=== PATIENT | male | born 1950 | race Caucasian/White ===

== ENCOUNTER 2024-08-08 20:20 | Inpatient (IN) | payer MEDICARE, SELFPAY ==
[2024-08-08 20:29] VITALS: PULSE 145; RESP 18; O2SAT 90; BMI 39.9
--- NOTE | 2024-08-08 20:31 | ECG_ITS ---
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 Measurements Intervals [place] Rate: 126 P: 0 IL: 0 QRS: -13 QRSD: 149 T: 1 QT: 285 QTc: 413 Interpretive Statements ATRIAL FIBRILLATION WITH RAPID VENTRICULAR RESPONSE RIGHT BUNDLE BRANCH BLOCK [120+ ms QRS DURATION, UPRIGHT V1, 40+ ms S IN I/aVL/V4/V5/V6] VOLTAGE CRITERIA FOR LVH [MEETS CRITERIA IN ONE OF: R(aVL), S(V1), R(V5), R(V5/V6)+S(V1)] ST DEPRESSION, CONSIDER SUBENDOCARDIAL INJURY [0.1+ mV ST DEPRESSION] No previous ECG available for comparison Electronically Signed On 08-15-2024 10:20:37 CDT by Rafa Leon M.D. [email or web address]
--- NOTE | 2024-08-08 20:35 | XRR_ITS ---
PROCEDURE INFORMATION: Exam: XR Chest Exam date and time: 08/08/2024 8:38 PM Age: 74 years old Clinical indication: Shortness of breath TECHNIQUE: Imaging protocol: Radiologic exam of the chest. Views: 1 view. COMPARISON: No relevant prior studies available. FINDINGS: Lungs: Patchy airspace disease present in the lung bases. Mild pulmonary vascular congestion. Pleural spaces: Small right pleural effusion. Heart/Mediastinum: Heart is enlarged. Bones/joints: Degenerative changes involve the spine and shoulders. XR/XR chest 1V portable [id number] IMPRESSION: Cardiomegaly associated with pulmonary vascular congestion. Patchy airspace disease present in the lung bases which may reflect pulmonary edema or pneumonia. Small right pleural effusion
--- NOTE | 2024-08-08 20:38 | ED_ITS ---
HPI - Chest Pain General: Chief Complaint: Chest Pain Stated Complaint: Chest Pains Time Seen by Provider: 08/08/24 20:29 History of Present Illness: Patient is a 74-year-old male seen for chest pain and shortness of breath which have been getting worse over the last 2 days associated with leg swelling. He states that he has not taken any of his medications for the last 2 weeks because he feels better when he does not take them. He has a history of heart disease with several stents placed and is supposed to be taking a loop diuretic as well as blood thinners and blood pressure medication, again none of which she has taken for the last several weeks. He describes gradual onset of shortness of breath and orthopnea over the last 3 days and then chest pain which he describes as pressure-like, worse with exertion, currently 5 out of 10, substernal with no radiation. He is in town visiting his son from [place]. Related Data Allergies Allergy/AdvReac Type Severity Reaction Status Date / Time No Known Allergies Allergy Verified 08/08/24 20:31 Physical Exam Const: COMMON NORMALS: no acute distress, patient oriented x3 and alert HENMT: COMMON NORMALS: normocephalic and atraumatic HEAD & SCALP: normocephalic and atraumatic Eye: COMMON NORMALS: Equal, round and reactive pupils present, EOMs intact bilaterally and no scleral icterus PUPIL: Yes Equal, round and reactive pupils present Resp: OTHER: Minimally increased work of breathing at rest, mild tachypnea, crackles at both lung bases. Orthopneic. Cardio: OTHER: Irregularly irregular, tachycardic heart. No murmur. Strong pulses in all extremities. 1-2+ pitting edema of the lower legs to the midshin level which she states is significantly worse than usual. GI: COMMON NORMALS: Normal to inspection, nondistended, normoactive bowel sounds present, Soft to palpation and non-tender PALPATION: Yes Soft to palpation Neuro: COMMON NORMALS: patient oriented x3 SENSORIUM/ORIENTATION: Yes alert Skin: COMMON NORMALS: no rashes or lesions noted GENERAL SKIN EXAM: no rashes or lesions noted Course Vital Signs: Vital signs: Vital Signs Pulse Rate 145 H 08/08/24 20:29 Respiratory Rate 18 08/08/24 20:29 Pulse Oximetry 90 08/08/24 20:29 Oxygen Delivery Me thod Room Air 08/08/24 20:29 MDM - Chest Pain EKG Data EKG 1: Interpretation: Time?2019?atrial fibrillation with RVR, rate of 126, right bundle branch block pattern and significant aVR ST segment elevation with lateral depression likely rate related. QTc = 359. No prior studies on file for comparison. Discharge Plan Discharge Condition: Stable Print Language: Latvian Coding Level of Care Code ED Experience Planning Strategist for Primo Guerrero
[2024-08-08] MEDS: dilTIAZem 5 mg/mL SDV 5 mL 10 MG IVP ×2 (20:42→21:44)
[2024-08-08 20:44] LABS: Basophils % 0.3 %; Eosinophils # 0.2 10^3/uL (0.0-0.8); Eosinophils % 1.6 %; Hematocrit 47.9 % (37-53); Lymphocytes # 1.7 10^3/uL (0.8-4.8); Lymphocytes % 18.2 %; Mean Corpuscular HGB Conc 31.3 g/dL (30-55); Mean Corpuscular Hemoglobin 26.6 pg (27-33); Mean Corpuscular Volume 84.9 fl (82-101); Mean Platelet Volume 9.4 fL (7.4-10.4); Monocytes # 0.7 10^3/uL (0.2-0.9); Monocytes % 7.7 %; Neutrophils # 6.67 10^3/uL (1.8-7.7); Nucleated Red Blood Cells % 0 %; Platelet Count 211 10^3/cmm (157-399); Red Blood Count 5.64 10^6/uL (3.85-5.65); Red Cell Distribution Width 17.3 % (12.1-15.1); White Blood Count 9.27 10^3/uL (3.29-11.43)
[2024-08-08] MEDS: nitroglycerin 1 gm/inch oint Pkt 1 INCH TOPICAL (20:44)
[2024-08-08] MEDS: FUROsemide 10 mg/mL SDV 10mL 60 MG IVP (20:46)
[2024-08-08 20:47] VITALS: BP 146/103; PULSE 128; RESP 31; O2SAT 92
[2024-08-08 20:51] LABS: INR 0.98 (0.8-1.2)
[2024-08-08 20:52] LABS: Partial Thromboplastin Time 28.1 SECONDS (23.9-36.7)
[2024-08-08 21:00] VITALS: BP 183/125; PULSE 107; O2SAT 92
[2024-08-08 21:20] LABS: Troponin(5th) Baseline 34 ng/L (0-15)
[2024-08-08 21:27] LABS: Alanine Aminotransferase 11 U/L (0-41); Albumin Level 4.2 g/dL (3.5-5.2); Alkaline Phosphatase 73 U/L (40-130); Anion Gap 15.4 (5-19); Aspartate Amino Transferase 15 U/L (0-40); Blood Urea Nitrogen 16 mg/dL (8-23); Calcium 9.4 mg/dL (8.5-10.5); Carbon Dioxide 30 mmol/L (22-29); Chloride 102 mmol/L (98-107); Creatinine Clr Calc Pharmacy 98.4573; Glucose 123 mg/dL (65-115); NT Pro B Type Natriuretic Pept 1904 pg/mL (0-125); Osmolality Calculated 301 mOsm/kg (285-295); Potassium 3.4 mmol/L (3.5-5.1); Sodium 144 mmol/L (136-145); Total Bilirubin 0.2 mg/dL (0.15-1.2); Total Protein 7.2 g/dL (6.6-8.7)
[2024-08-08 21:45] VITALS: BP 171/131; PULSE 116; RESP 20; O2SAT 94
[2024-08-08 22:52] LABS: Troponin 5 2HR 60.17 ng/L (0-15)
[2024-08-08 22:58] LABS: Troponin 5 2HR Delta 26.17 ABS# (0-10)
[2024-08-08 23:14] VITALS: BP 165/108; PULSE 122; RESP 16; O2SAT 93
[2024-08-08 23:30] VITALS: BP 151/107; PULSE 92; RESP 20; O2SAT 97
[2024-08-09] VITALS (21 sets, daily range): BP systolic 145–200; BP diastolic 92–132; PULSE 0–99; RESP 17–27; TEMP 36.9–37.3; O2SAT 91–100
[2024-08-09] MEDS: dilTIAZem 100 MG in sodium chloride 0.9% (add-van) 100 ML IV (00:59)
--- NOTE | 2024-08-09 01:24 | ECG_ITS ---
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 Measurements Intervals [place] Rate: 88 P: 0 MD: 0 QRS: -19 QRSD: 176 T: 0 QT: 420 QTc: 509 Interpretive Statements ATRIAL FIBRILLATION RIGHT BUNDLE BRANCH BLOCK [120+ ms QRS DURATION, UPRIGHT V1, 40+ ms S IN I/aVL/V4/V5/V6] POSSIBLE LEFT VENTRICULAR HYPERTROPHY [VOLTAGE CRITERIA PLUS LAE OR QRS WIDENING] Compared to ECG 08/08/2024 20:20:27 ST (T wave) deviation no longer present Electronically Signed On 08-15-2024 10:20:11 CDT by Rafa Leon M.D. [email or web address] [email or web address]
--- NOTE | 2024-08-09 01:41 | P.HP_ITS ---
Providers/Chief Complaint 2 Admitting Physician: Fernando Barker MD Primary Care Provider: Ariadna Cerna Audrey Chief Complaint: Chest Pains History of Present Illness Ghanshyam Conway is a 74 year old male male who sees Hayes Glasgow MD from [facility]. The patient states that he had been fatigued and felt poorly and wanted to cut back on some of his meds but daughter did not want to discuss this much so he stopped all his meds 2 or 3 weeks ago. He drove drove here to supervise his son who is 55 building a house in the [facility] about 45 minutes from this hospital. States he does not know the name of that town. Patient did not bring his BiPAP which he states one of the settings is 13 because his son is planning to live off [address] and does not have any electricity currently. Patient states his medications are in his car 7 or 9 medications but he does not know the names of them his car is not here as he came by ambulance. He states his son could bring them tomorrow Review of Systems 2 Narrative: General positive for weight gain positive for dyspnea on exertion orthopnea leg swelling all worse since stopping his meds. Cardiovascular positive for chest pain severe but none now Respiratory positive for dyspnea on exertion and orthopnea GI no nausea vomiting diarrhea constipation Neuro no history of seizures or stroke Medications/Allergies Allergies Allergy/AdvReac Type Severity Reaction Status Date / Time No Known Allergies Allergy Verified 08/08/24 20:31 PFSH Acute 2 PFSH: Medical History (Updated 08/09/24 @ 01:50 by Fernando Barker MD) Brain tumor Sleep apnea COPD (chronic obstructive pulmonary disease) Coronary artery disease Congestive heart failure Atrial fibrillation Surgical History (Updated 08/09/24 @ 01:49 by Fernando Barker MD) H/O craniotomy History of herniorrhaphy Hx of total knee arthroplasty Social History (Updated 08/09/24 @ 01:49 by Fernando Barker MD) Smoking and tobacco/nicotine status: current every day tobacco/nicotine user cigarettes Alcohol intake: former Additional social history: He wants full CODE STATUS Vitals/I&O/Wt Last Vital Signs Pulse 78 08/09/24 01:31 Resp 20 H 08/09/24 01:31 BP 156/96 08/09/24 01:31 Pulse Ox 97 08/09/24 01:31 O2 Del Method Nasal Cannula 08/08/24 23:14 O2 Flow Rate 2 08/08/24 23:14 Weight last 48 hrs Weight 115.666 kg Physical Exam 2 Narrative: General well-developed well-nourished obese male in no acute cardiopulmonary distress CV irregular rhythm with controlled rate Lungs crackles heard in both bases no wheezes Abdomen positive bowel sounds soft nontender Calves no tenderness cords. He does have pretibial edema 2+ to 3 bilateral and pitting Skin warm and dry Mentation alert and oriented x 3 but he is poor historian Data 08/08/24 20:28 08/08/24 20:28 A&P Assessment and plan (1) Congestive heart failure: Continue with diuresis. Need to obtain old records from [place]. Monitor potassium magnesium and phosphorus with diuresis. Resume BiPAP (2) Coronary artery disease: Troponin elevated but likely due to demand ischemia. Additional troponin pending (3) Atrial fibrillation: Continue with rate control with diltiazem drip. Will add beta-trey (4) COPD (chronic obstructive pulmonary disease): Stable (5) Sleep apnea: Stable but will treat with BiPAP (6) Noncompliance: Patient counseled that there may be some medications that he can forego under the direction physician but he cannot stop all his medications and BiPAP as he rapidly decompensated and will without taking at least most of his medications PDMP PDMP Reviewed: Not Reviewed Attestations 2 Medical Necessity Statement*: Patient's hospitalization will cross 2 midnights for diuresis and adjustment of his medications Coding Level of Care Code 59212 Diagnoses Congestive heart failure I50.9 Coronary artery disease I25.10 Atrial fibrillation I48.91 COPD (chronic obstructive pulmonary disease) J44.9 Sleep apnea G47.30 Noncompliance Z91.199 Time Spent (min) 70
[2024-08-09] MEDS: magnesium sulfate premix 2 GM/50 ML PIGGYBACK IV (02:32)
[2024-08-09] MEDS: FUROsemide 10 mg/mL SDV 4mL 40 MG IVP ×2 (02:33→14:21)
[2024-08-09] MEDS: potassium chloride ER 20 mEq Tablet 40 MEQ PO (02:33)
[2024-08-09] MEDS: apixaban 5 mg Tablet PO (02:33)
[2024-08-09] MEDS: metoprolol succinate ER (24 HR) 50 mg Tablet PO ×3 (02:48→17:20)
[2024-08-09 03:29] LABS: Troponin 5 6HR 102.2 ng/L (0-15); Troponin 5 6HR Delta 68.2 ng/L (0-12)
[2024-08-09] MEDS: ipratropium-albuterol 3 mL Neb INHALATION ×3 (07:46→21:28)
--- NOTE | 2024-08-09 08:01 | PC.PHAR ---
Pt states he gets medications via mail order and has not taken any of them in 2 weeks. Pt uses his sample of Trelegy Ellipta daily to help him breathe.
--- NOTE | 2024-08-09 08:06 | USCV_ITS ---
Ghanshyam Conway Age: 74 Gender: M : 1950 Exam Date: 08/09/2024 19:17 Ordering Phys: Osiel Jones MD Technologist: ELHAM [place] [facility] [place]: CHF, elevated troponin BP: 172 / 108 HR: 72 Rhythm: Atrial fibrillation Technical Quality: Adequate MEASUREMENTS (Male / Female) Normal Values 2D ECHO LV Diastolic Diameter PLAX 4.2 cm 4.2 - 5.9 / 3.9 - 5.3 cm IVS Diastolic Thickness 3.4 cm 0.6 - 1.0 / 0.6 - 0.9 cm IVS Systolic Thickness 3.4 cm LVPW Diastolic Thickness 2.3 cm 0.6 - 1.0 / 0.6 - 0.9 cm LVPW Systolic Thickness 2.6 cm LVOT Diameter 1.8 cm LV Ejection Fraction 2D Teich 64.5 % LV Ejection Fraction MOD 4C 70.0 % LV Ejection Fraction MOD 2C 61.8 % LV Ejection Fraction 2C AL 68.1 % LA Diameter 5.4 cm Aorta at Sinotubular Diameter 3.3 cm IVC Diameter 1.6 cm M-MODE LA Ao Ratio MM 1.8 AV Cusp Separation MM 1.9 cm DOPPLER AV Peak Velocity 171.0 cm/s LVOT Peak Velocity 121.0 cm/s AV Area Cont Eq vti 2.8 cm squared AV Area Cont Eq pk 1.9 cm squared MV Peak Velocity 120.0 cm/s MV Area PHT 3.0 cm squared Mitral E to A Ratio 0.0 TR Peak Velocity 278.0 cm/s TR Peak Gradient 30.9 mmHg TV Peak E Velocity 54.0 cm/s PV Peak Velocity 101.0 cm/s FINDINGS Left Ventricle Left ventricle is normal in size. Severe left ventricular hypertrophy. LV systolic function is normal with EF of 65-70%. No regional wall motion abnormalities are seen Right Ventricle Normal in size and function Right Atrium Normal in size Left Atrium Severely dilated Mitral Valve Moderate to severe mitral annular calcification. Mild mitral regurgitation. Aortic Valve Aortic valve is thickened. No significant stenosis or regurgitation. Tricuspid Valve Mild tricuspid regurgitation. RVSP is 40-45mmHg. Mild pulmonary hypertension. Pulmonic Valve Not well visualized Pericardium Normal Aorta Mild ascending aorta dilation. IVC Appears to be normal CONCLUSIONS LV systolic function is normal with EF of 65-70% Severe left ventricular hypertrophy Left atrial dilation Mild mitral regurgitation Mild tricuspid regurgitation Mild pulmonary hypertension Mild ascending aorta dilation. No comparison studies are available. Rafa Leon MD (Electronically Signed) Final Date: 10 August 2024 08:21 S
[2024-08-09] MEDS: potassium chloride ER 20 mEq Tablet PO ×2 (08:23→17:20)
[2024-08-09] MEDS: aspirin 325 mg Tablet PO (08:23)
[2024-08-09] MEDS: dilTIAZem 30 mg Tablet PO ×4 (10:30→20:23)
[2024-08-09 14:05] LABS: Platelet Count 202 10^3/cmm (157-399)
[2024-08-09] MEDS: heparin 5,000 unit/mL INJ 1 mL IVP (14:14)
[2024-08-09] MEDS: heparin drip 25,000 UNIT/500 ML PREMIX 32 UNIT IV (14:42)
--- NOTE | 2024-08-09 15:05 | P.PN_ITS ---
Subjective 2 Subjective: He is feeling little bit better this morning. No chest pain or pressure. Heart rate so far with improvement down into the 70s. He does report exertional chest pain. Has a history of coronary disease and has had several stents, last 1 was probably about 6 months ago. He states he has missed doses of his prasugrel, discussed with him significant importance and risk of severe adverse effects in case of discontinuation of his medications, risk of stent thrombosis and related potentially life-threatening complications. He verbalized understanding for need for continued medication, at the least prasugrel. Vitals/I&O/Wt Last Vital Signs Temp 99.1 F 08/09/24 11:51 Pulse 72 08/09/24 13:48 Resp 18 08/09/24 13:43 BP 145/100 08/09/24 12:53 Pulse Ox 94 08/09/24 13:43 O2 Del Method Nasal Cannula 08/09/24 13:43 O2 Flow Rate 1 08/09/24 13:43 FiO2 30 08/09/24 02:32 08/09/24 08/09/24 08/09/24 06:59 14:59 22:59 Intake Total 50 / 50 654.000 / 654.000 Output Total 1500 / 1500 810 / 810 Balance -1450 / -1450 -156.000 / -156.000 Weight last 48 hrs Weight 115.666 kg Weight 115.666 kg Weight 115.666 kg Physical Exam 2 Const: COMMON NORMALS: patient oriented x3 and alert GENERAL APPEARANCE: c ooperative ORIENTATION/CONSCIOUSNESS: Yes awake HENMT: COMMON NORMALS: oropharynx normal Neck/C-Spine: COMMON NORMALS: no JVD Resp: COMMON NORMALS: normal respiratory effort and clear to auscultation bilaterally AUSCULTATION: clear to auscultation bilaterally Cardio: COMMON NORMALS: no JVD, S1 normal heart sound present, S2 normal heart sound present and No murmurs present (Cardio) HEART SOUNDS: S1 normal heart sound present and S2 normal heart sound present GI: COMMON NORMALS: Normal to inspection, nondistended, normoactive bowel sounds present, Soft to palpation and non-tender PALPATION: Yes Soft to palpation Extremity: COMMON NORMALS: no joint enlargement and no pedal edema Neuro: COMMON NORMALS: patient oriented x3 and moves all extremities S ENSORIUM/ORIENTATION: Yes alert Skin: COMMON NORMALS: no rashes or lesions noted GENERAL SKIN EXAM: no rashes or lesions noted Data 08/09/24 02:35 08/08/24 20:28 A&P Assessment and plan (1) Coronary artery disease: NSTEMI with rising troponin positive delta at 2 hours and 6 hours. He had received a dose of anticoagulation with Eliquis overnight. Eliquis held. Added aspirin 325 mg. He was on prasugrel previously, but does state he missed doses. Discussed with him the importance of adherence to medications particularly antiplatelets. Discussed with cardiology, appreciate cardiology consultation. Started on aspirin. Resume prasugrel. Anticoagulation has been switched to heparin drip. Monitor risk of bleeding, PTT. Continue metoprolol. Restart statin. Assess TTE. Monitor on telemetry with risk of arrhythmia. Pending record request from [place]. (2) Congestive heart failure: With initial diuresis good urine output, negative balance,, with finding of NSTEMI, appreciate cardiology consultation, consideration of further evaluation. Receiving gentle hydration. Monitor for risk of fluid overload. Reassess volume status. Received potassium replacement, monitor for risk of electrolyte deficiency. Reassess chemistry, check magnesium. resume BiPAP (3) Atrial fibrillation: Heart rate better controlled on reassessment, stop Cardizem drip, switch to oral Cardizem. Continue metoprolol. Monitor for risk of hypotension. So far has been significantly hypertensive. (4) COPD (chronic obstructive pulmonary disease): Not in exacerbation (5) Sleep apnea: BiPAP (6) Noncompliance: Reinforced importance of continue to take his medications particularly prasugrel due to risk of in-stent closure, severe and/or life-threatening DE. Plan Smoking addiction, discussed smoking cessation with him for 3 and half minutes. He has tried multiple medications in the past, including Chantix, has not been successful in quitting. Chantix gave him bad dreams. He initially is reluctant for nicotine replacement, states it has not worked for him in the past, however, subsequent agreeable to nicotine replacement with patches and as needed lozenges at least for here. PDMP PDMP Reviewed: Not Reviewed Attestations 2 Medical Necessity Statement*: Continue admission for assessment and management of NSTEMI, acute CHF in a gentleman with underlying coronary disease, additional comorbidities. and High MDM includes amount and/or complexity of data reviewed/ordered [ resulted lab(s)/test(s), ordered lab(s)/test(s) and other healthcare professional discussion] and described risk of complication, morbidity or mortality of management as documented Diagnoses Coronary artery disease I25.10 Congestive heart failure I50.9 Atrial fibrillation I48.91 COPD (chronic obstructive pulmonary disease) J44.9 Sleep apnea G47.30 Noncompliance Z91.199
--- NOTE | 2024-08-09 15:22 | P.CONIM_ITS ---
<Statement entered by Rafa Leon M.D - 08/11/24 07:23> Patient was evaluated and cared for in conjunction with an advanced practice practitioner.? I personally examined the patient and reviewed the chart and all pertinent data including imaging, telemetry, and laboratory results.? I discussed the patient in detail with the advanced practice practitioner.? Please see? their note for complete consult note, testing results and agreed upon plan of care for the patient. Patient has on and off chest pain and shortness of breath GENERAL: Patient is alert, awake and oriented x3. HEART: Irregularly irregular LUNGS: Diminished air entry bilaterally CENTRAL NERVOUS SYSTEM: Grossly nonfocal. EXTREMITIES: Lower extremities with 1+ edema NSTEMI Afib with RVR Congestive heart failure Plan for coronary angigoram tomorrow. N.p.o. after midnight. Providers/Reason For Consult 2 Consulting Physician/Specialty*: Dr. Leon Reason for Consult*: Chest pain, NSTEMI Attending Physician: Osiel Jones History of Present Illness History of Present Illness Ghanshyam Conway is a 74 year old male history of sleep apnea, COPD, CAD, CHF, A- fib and current smoker came into the ER this morning around 1:00 for chest pain. Patient states that yesterday morning he started to have chest pressure at the center to the left of his chest that he thought was indigestion initially. He states it started to radiate down his left arm and got worse on exertion relieved with rest. This is when he came into the ER. He does take Eliquis at home for stroke prophylaxis and he did get a dose last night. proBNP was elevated at 1900. X-ray had suggestions of CHF. Patient is taking Lasix 40 every 12 IV. His EKG showed A-fib with RVR rates of 126. He was given Cardizem IV push twice. He was then started on a drip. Rates are currently controlled. Blood pressure stable and slightly elevated. Currently he is getting metoprolol succinate 50 twice daily. He takes Effient and aspirin as well. Troponin is elevated at 34-60-102. Apparently, patient has hx of stenting about 6 months ago but has missed doses of his prasugrel. He reports shortness of breath on exertion but denies orthopnea. He denies any chest pain at this time. Review of Systems 2 Narrative: Consitutional: denies fever, chills, body aches, or changes in appetite, denies abnormal weight loss Card: Denies chest pain, palpitations, irregular heart rhythm, edema, syncope, orthopnea Resp: reports shortness of breath on exertion relieved with rest, denies hemoptysis, denies cough GI: denies abdominal pain, denies nausea or voimting, denies blood in stool : denies blood in urine, denies dysuria Musc: Denies extremity pain, denies limited range of motion or recent injury Skin: Denies rash, lesions, or wounds, denies changes to skin color Neuro: Denies nubmness in extremities, h/a, s/s of stroke Kian: Denies easy bruiding/bleeding Medications/Allergies Home Medications ?Medication ?Instructions ?Recorded ?Confirmed ?Last Taken ?Type amlodipine 10 mg tablet 10 mg PO DAILY 08/09/2407/13 2 Weeks Ago History ~07/26/24 betamethasone dipropionate 0.05 % 1 applic topical CHANCE LY PRN Skin 08/09/24 08/09/24 Unknown History topical cream Irritation carvedilol 25 mg tablet 25 mg PO BID 08/09/24 2 Weeks Ago History ~07/26/24 citalopram 20 mg tablet 20 mg PO DAILY 08/09/2407/13 2 Weeks Ago History ~07/26/24 cyclobenzaprine 10 mg tablet 10 mg PO TID PRN muscle s pasms 08/09/24 08/09/24 Unknown History fluticasone fur. 100 mcg-umeclid 1 inh inhalation PRATIBHA Y 08/09/24 08/09/24 08/08/24 History 62.5 mcg-vilant 25 mcg inhalat.powder (Trelegy Ellipta) prasugrel HCl 10 mg tablet 10 mg PO DAILY 08/09/24 2 Weeks Ago History ~07/26/24 rosuvastatin 40 mg tablet 40 mg PO BEDTIME 08/09/24 2 Weeks Ago History ~07/26/24 tamsulosin 0.4 mg capsule 0.4 mg PO BEDTIME 08/09/24 0 08/09/24 2 Weeks Ago History ~07/26/24 Allergies Allergy/AdvReac Type Severity Reaction Status Date / Time No Known Allergies Allergy Verified 08/08/24 20:31 Current Medications Generic Name Dose Route Start Last Admin Trade Name Harry PRN Reason Stop Dose Admin Albuterol/Ipratropium 3 ml 08/09/24 08:00 08/09/24 13:43 Ipratropium-Albuterol 3 Ml Neb INHALATION 3 ml Q6H.RESP ESTIVEN Administration Apixaban 5 mg 08/09/24 02:02 08/09/24 02:33 Apixaban 5 Mg Tablet PO 5 mg BID ESTIVEN Administration Aspirin 325 mg 08/09/24 08:05 08/09/24 08:23 Aspirin 325 Mg Tablet PO 325 mg DAILY ESTIVEN Administration Diltiazem HCl 30 mg 08/09/24 09:30 08/09/24 14:12 Diltiazem 30 Mg Tablet PO 30 mg QID ESTIVEN Administration Furosemide 40 mg 08/09/24 02:02 08/09/24 14:21 Furosemide 10 Mg/Ml Sdv 4ml IVP 40 mg Q12H ESTIVEN Administration Heparin Sodium/Sodium Chloride 25,000 unit in 500 mls @ 0 mls/hr 08/09/24 13:45 08/09/24 14:42 Heparin Drip IV 13.83 unit/kg/hr CONT ESTIVEN 32 mls/hr Administration Protocol Per Protocol Metoprolol Succinate 50 mg 08/09/24 02:02 08/09/24 08:23 Metoprolol Succinate Er (24 Hr) 50 Mg Tablet PO 50 mg BID ESTIVEN Administration Potassium Chloride 20 meq 08/09/24 09:00 08/09/24 08:23 Potassium Chloride Er 20 Meq Tablet PO 20 meq BID ESTIVEN Administration PFSH Acute 2 PFSH: Medical History (Updated 08/09/24 @ 15:30 by Babs Lim NP) Brain tumor Sleep apnea COPD (chronic obstructive pulmonary disease) Coronary artery disease Congestive heart failure Atrial fibrillation Surgical History (Updated 08/09/24 @ 01:49 by Fernando Barker MD) H/O craniotomy History of herniorrhaphy Hx of total knee arthroplasty Social History (Updated 08/09/24 @ 01:49 by Fernando Barker MD) Smoking and tobacco/nicotine status: current every day tobacco/nicotine user cigarettes Alcohol intake: former Additional social history: He wants full CODE STATUS Vitals/I&O/Wt Last Vital Signs Temp 99.1 F 08/09/24 11:51 Pulse 72 08/09/24 13:48 Resp 18 08/09/24 13:43 BP 145/100 08/09/24 12:53 Pulse Ox 94 08/09/24 13:43 O2 Del Method Nasal Cannula 08/09/24 13:43 O2 Flow Rate 1 08/09/24 13:43 FiO2 30 08/09/24 02:32 08/09/24 08/09/24 08/09/24 06:59 14:59 22:59 Intake Total 50 / 50 654.000 / 654.000 Output Total 1500 / 1500 810 / 810 Balance -1450 / -1450 -156.000 / -156.000 Weight last 48 hrs Weight 255 lb Weight 255 lb Weight 255 lb Physical Exam 2 Narrative: General: No apparent distress, healthy appearing, well nourished HENMT: normoceophalic Muskuloskeletal: Full ROM Respiratory: Normal respiratory effort, bilateral lower lobes diminished but otherwise clear throughout slight expiratory wheezes, no use of accessory muscles Cardio: No JVD, irregularly irregular rate and rhythm, S1 S2 normal, no murmurs, peripheral pulses 2+ radial palpated bilaterally GI: Normal to inspection, nondistended Extremities: Full ROM, normal, normal capillary refill, no cyanosis or edema Neuro: Alert and oriented x4, no focal motor deficits Psych: Affect normal, denies suicidal ideation, mental status grossly normal Skin: No rashes or lesions noted, no wounds Data 08/10/24 02:47 08/10/24 02:47 A&P Assessment and plan (1) Congestive heart failure: Qualifiers: Heart failure chronicity: acute Heart failure type: unspecified Q ualified Code(s): I50.9 - Heart failure, unspecified (2) Atrial fibrillation: Qualifiers: Atrial fibrillation type: unspecified Qualified Code(s): I48.91 - Unspecified atrial fibrillation (3) NSTEMI (non-ST elevated myocardial infarction): Plan Patient is having typical signs and symptoms of chest pain. Troponin elevation indicates NSTEMI. He is denies any chest pain at this time. The plan would be to start patient on heparin drip, plan for left heart cath tomorrow morning if patient is compensated. Agree with Lasix 40 twice daily. He has diuresed well with -1606 over 24 hours. Agree with switching diltiazem drip to p.o. Echo pending. Will give further recommendations once read. Thank you, Dr. Jones, for allowing us to care for this very pleasant 74 year old gentleman. PDMP PDMP Reviewed: Not Reviewed Consult Attestations 2 Medical Necessity Statement: Defer to primary Coding Level of Care Code Acute Code for Chg Fwd Diagnoses Acute congestive heart failure, unspecified heart failure type I50.9 Heart failure chronicity: acute Heart failure type: unspecified Atrial fibrillation, unspecified type I48.91 Atrial fibrillation type: unspecified NSTEMI (non-ST elevated myocardial infarction) I21.4
[2024-08-09] MEDS: prasugrel 10 MG Tablet PO (17:19)
[2024-08-09] MEDS: atorvastatin 40 mg Tablet 80 MG PO (20:23)
[2024-08-09] MEDS: tamsulosin 0.4 mg Capsule PO (20:23)
[2024-08-09 20:36] LABS: Partial Thromboplastin Time 60.7 SECONDS (23.9-36.7)
[2024-08-10] VITALS (77 sets, daily range): BP systolic 127–190; BP diastolic 91–133; PULSE 44–124; RESP 8–104; TEMP 36.4–36.8; O2SAT 84–99
[2024-08-10] MEDS: FUROsemide 10 mg/mL SDV 4mL 40 MG IVP (02:09)
[2024-08-10 05:06] LABS: Partial Thromboplastin Time 44.7 SECONDS (23.9-36.7)
[2024-08-10 05:47] LABS: Basophils % 0.2 %; Eosinophils # 0.1 10^3/uL (0.0-0.8); Eosinophils % 1.5 %; Hematocrit 44.1 % (37-53); Lymphocytes % 22.7 %; Mean Corpuscular HGB Conc 30.4 g/dL (30-55); Mean Corpuscular Volume 85.5 fl (82-101); Monocytes # 0.6 10^3/uL (0.2-0.9); Monocytes % 6.8 %; Neutrophils # 6.09 10^3/uL (1.8-7.7); Neutrophils % 68.6 %; Nucleated Red Blood Cells % 0 %; Platelet Count 189 10^3/cmm (157-399); Red Blood Count 5.16 10^6/uL (3.85-5.65); White Blood Count 8.88 10^3/uL (3.29-11.43)
[2024-08-10 06:15] LABS: Anion Gap 12.4 (5-19); Blood Urea Nitrogen 21 mg/dL (8-23); Calcium 8.9 mg/dL (8.5-10.5); Carbon Dioxide 31 mmol/L (22-29); Chloride 104 mmol/L (98-107); Creatinine Clr Calc Pharmacy 100.9938; Glucose 110 mg/dL (65-115); Magnesium 1.9 mg/dL (1.7-2.3); Osmolality Calculated 302 mOsm/kg (285-295); Phosphorus 3.9 mg/dL (2.5-4.5); Potassium 3.4 mmol/L (3.5-5.1); Sodium 144 mmol/L (136-145)
[2024-08-10] MEDS: sodium chloride 0.9% 1,000 ML 50 ML IV (06:24)
--- NOTE | 2024-08-10 07:19 | XACV_ITS ---
Exam Room: [facility] Ht: 170 cm Wt: 116 kg BSA: 2.39 m2 Gender: Male : 1950 Any Known Allergies: No known allergies Exam Priority: Routine Procedure(s): Procedure Description: Diagnostic procedure Procedure Description: PCI procedure Procedure Description: Drug Eluting Coronary Stent Procedure Description: PTCA Procedure Description: Miscellaneous Procedure Description: ACT Procedure Description: Coronary Angiography Diagnostic Cath Status: Urgent Diagnostic Findings * Left Main has no significant disease. * Left Anterior Descending has diffuse moderate disease. * Distal Circumflex: severe 80% stenosis, THOMAS: 3 flow. * First Obtuse Marginal Branch Segment: severe 80% stenosis, THOMAS: 3 flow. * Right Coronary Artery has mild to moderate luminal irregularities. * Coronary angiography shows co-dominance. PCI Status: Urgent PCI Indication: NSTE - ACS Interventional Findings * Procedure detail: We engaged left main artery with XB 4 guide catheter. IV heparin was administered to maintain anticoagulation. Run-through wire was used to cross into distal OM1 vessel. We predilated stenosis with 2.5 x 15 mm semicompliant balloon. This was followed by placement of 2.5x22 mm resolute Vladimir drug-eluting stent. We then advanced a wire into distal left circumflex artery. The stenosis was predilated with 2.5 x 15 mm semicompliant balloon. This was followed by placement of 2.75 x 18 mm resolute Vladimir drug-eluting stent. At distal edge there was significant residual stenosis and we placed a second 2.5 x 12 mm resolute [place] drug-eluting stent. At this time, final angiogram was performed that showed excellent stent expansion. Distal circumflex at the end of the vessel has diffuse disease. Guidewire and catheter were removed. 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 * Distal Circumflex: 80% stenosis treated with a AB TREK 2.50X15 RX BALLOON, MDT R VLADIMIR 2.75X18 VANNA, and MDT R VLADIMIR 2.5X12 VANNA. 0% residual stenosis, THOMAS: 3 flow. * First Obtuse Marginal Branch Segment: 80% stenosis treated with a AB TREK 2.50X15 RX BALLOON, and MDT R VLADIMIR 2.5X22 VANNA. 0% residual stenosis, THOMAS: 3 flow. Conclusions 1. Severe OM1 and distal left circumflex artery stenosis status post successful revascularization with 3 stents.. 2. Distal Circumflex was treated with a Balloon, Drug Eluting Stent, and Drug Eluting Stent. 3. First Obtuse Marginal Branch Segment was treated with a Balloon, and Drug Eluting Stent. Recommendations * Plavix and Eliquis. * Outpatient cardiology follow up in 2 weeks. Interventional RX Recommendation: PCI w/o planned CABG Diagnostic RX Recommendation: PCI w/o planned CABG Anticoagulation: Heparin Pressures Phase:Rest AO : 131 / 100 ( 116 ) @ 10:01:00 AM 138 / 109 ( 125 ) @ 10:05:00 AM Clinical Evaluation EBL: 5mL-10mL Procedural Details Procedure Consent Obtained. Pre-Procedure Time Out. Identified patient by full name and date of as verbalized by the patient/guarantor. Does the consent match the physician's order: Yes. Accurate & Complete Informed Consent: Yes. Inpatient/Outpatient History & Physical on Chart: Yes. If H&P is completed, is and addenduem needed: No; If yes, is the addendum complete: N/A. Visualize and Verify Site with Patient/Guarantor: N/A. Relevant Radiology Images available: Yes. The risks, benefits, and alternatives of sedation and/or procedure were discussed by physician. The patient agrees to continue. Procedure started. CSHA Clinical Fraility Score: 3: Managing Well. [employer] Leader Indications: ACS > 24 hours. Chest Pain Symptom Assessment: Typical Angina Symptoms. Cardiovascular Instability: No. Correct patient, site and procedure confirmed by cath team. Current diagnosis: NSTEMI. PERRLA. 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 Lungs clear x 5 lobes. IV Site on Arrival: 22 gauge in the left forearm. IV Fluids: 0.9% NaCl at KVO. 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 Pre Procedural Pulses: bilateral dorsalis pedis was 1+. Pre Procedural Pulses: bilateral posterior tibial was 1+. Pre Procedural Pulses: bilateral radial was 2+. right radial was prepped with chloroprep then draped in the usual sterile fashion. right groin was prepped with chloroprep then draped in the usual sterile fashion. Physician notified. Baseline sample Acquired. HR: 102 BPM. Patient's family unavailable. Equipment: 6F - Radial. Cardiac Cath Pack. ACIST Manifold Kit Model BT 2000. Heparinized Saline (2 units/mL), 1000 mL bag. Physician arrived. Physician scrubbed in. Immediate Pre-Procedure Time Out. Correct Patient: Yes; Correct Procedure: Yes; Correct Site: Yes; Correct Patient Position: Yes; Correct Supplies: Yes; Dried Flammable Prep: Yes; Blood Products Available: N/A. Lidocaine 1% infiltrated to the right radial. Arterial access obtained. A 5 micronesian TIG catheter in over the exchange J wire. Exchange J wire out. Hand injection of the radial artery performed through the catheter. 0.0.35 x 260cm stiff angled glidewire in through the catheter. Catheter removed over the glide wire. Will abort radial access and move to right femoral access. A TR Band was successful obtaining hemostatsis at the Right Radial artery insertion site. Lidocaine 1% infiltrated to the right groin. Arterial access obtained with micropuncture set. A 5 micronesian JR4 catheter in over the exchange glidewire. Multiple views taken of right coronary artery. Catheter removed over the exchange J wire. A 5 micronesian JL4 catheter in over the exchange J wire. Catheter removed over the exchange J wire. A 5 micronesian JL4.5 catheter in over the exchange J wire. Multiple views taken of left coronary artery. Catheter removed over the exchange J wire. Dr. Leon scrubbed out to view cineography. Dr. Leon scrubbed back in to start intervention. 6 micronesian XB 4 guide catheter was inserted over the exchange J wire. Runthrough guidewire was advanced through the guide catheter. Runthrough guidewire out. Lidocaine 1% infiltrated to the right groin. Sheath upsized to a 6 Fr. 6 micronesian XB 4 guide catheter was inserted over the exchange J wire. Catheter removed over the exchange J wire. 6 micronesian XB 4.5 guide catheter was inserted over the exchange J wire. Catheter removed over the exchange J wire. 6 micronesian XB 3.5 guide catheter was inserted over the wire. Catheter removed over the exchange J wire. 6 micronesian XB 4 guide catheter was inserted over the exchange J wire. Runthrough guidewire was advanced through the guide catheter to lesion in the OM-1. Inflation number : 1 A AB TREK 2.50X15 RX BALLOON was prepped and advanced across the 1st Ob Monika , then inflated to 8 BISMARK for 0:13 seconds. Inflation number: 2 The AB TREK 2.50X15 RX BALLOON was reinflated across the 1st Ob Monika, to 12 BISMARK for 0:10 seconds. Inflation Number : 3 A MDT R VLADIMIR 2.5X22 VANNA -Lot Number# [id number] Exp. was prepped and advanced across the 1st Ob Monika. The stent was deployed at 14 BISMARK for 0:18 seconds. Balloon out. Stent balloon out over wire. runthrough wire redirected to the distal CX. Inflation number: 1 The AB TREK 2.50X15 RX BALLOON was reinflated across the Dist CX, to 12 BISMARK for 0:12 seconds. Balloon out. Inflation Number : 2 A MDT R VLADIMIR 2.75X18 VANNA -Lot Number# [id number] Exp. was prepped and advanced across the Dist CX. The stent was deployed at 14 BISMARK for 0:15 seconds. Stent balloon out over wire. Results checked. Inflation Number : 3 A MDT R VLADIMIR 2.5X12 VANNA -Lot Number# [id number] Exp. was prepped and advanced across the Dist CX. The stent was deployed at 12 BISMARK for 0:16 seconds. Inflation number: 4 The stent balloon was then re-inflated across the Dist CX to 14 BISMARK for 0:11 seconds. Stent balloon out over wire. Results checked. Wire out. ACT drawn. Results 285 seconds. Therapeutic limits - pre-heparin administration 90-150 seconds and monitoring heparin during a vascular procedure >250 seconds. Sheath upsized to a 6 Fr. Guide catheter out over the exchange J wire. A Right femoral angiogram was performed to determine safe placement of closure device. A Angio-Seal VIP ([place]) was successful obtaining hemostatsis at the Right Femoral artery insertion site. Lot # [id number]. Exp. . Angioseal placed without complications. No signs or symptoms of hematoma noted. Sterile dressing applied per usual sterile fashion. PERRLA. 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 No VTE prophylaxis required. Medication's Wasted: Lidocaine 1% = 10 mL. Medication's Wasted: Nitro = 49.8 mg. Medication's Wasted: Heparin = 1000 units. Medication's Wasted: Other = Hydralazine 10 mg. Medication's Wasted: Other = Fentanyl 50 mcg. Total IV fluids: 100 mL. PCI Indication: NSTE. Post-op diagnosis: PCI of the 1st Om with one VANNA, PCI of the Distal CX with two VANNA. Complications: none. Estimated blood loss: 5mL-10mL. Responsiveness - Normal response to verbal stimuli; alert and oriented, PERRLA. Airway - Unaffected, no intervention required; spontaneous ventilation. Circulation: W/N/L, pulses unchanged. Nausea/Vomiting: No. Procedure completed. Patient transferred by bed to 1st floor. Access Site Site: Right Radial artery Sheath Size: 6 Fr Hemostasis Method: TR Band Hemostasis Success: Successful Site: Right Femoral artery Sheath Size: 6 Fr Hemostasis Method: Angio-Seal VIP ([place]) Hemostasis Success: Successful Procedure Medications Start: 8:29 AM Stop: 8:29 AM Medication: Benadryl Amount: 25 mg Route: I.V. Start: 8:32 AM Stop: 8:32 AM Medication: Versed Amount: 1 mg Start: 8:33 AM Stop: 8:33 AM Medication: Fentanyl Amount: 50 mcg Route: I.V. Start: 8:38 AM Stop: 8:38 AM Medication: Nitrogylcerin Amount: 200 mcg Route: I.A. Start: 9:05 AM Stop: 9:05 AM Medication: Fentanyl Amount: 25 mcg Route: I.V. Start: 9:09 AM Stop: 9:09 AM Medication: Versed Amount: 1 mg Route: I.V. Start: 9:14 AM Stop: 9:14 AM Medication: Heparin Amount: 9000 units Route: I.V. Start: 9:19 AM Stop: 9:19 AM Medication: Fentanyl Amount: 25 mcg Route: I.V. Start: 9:30 AM Stop: 9:30 AM Medication: Heparin Amount: 1000 units Route: I.V. Start: 9:35 AM Stop: 9:35 AM Medication: Fentanyl Amount: 25 mcg Route: I.V. Start: 9:35 AM Stop: 9:35 AM Medication: Fentanyl Amount: 25 mcg Route: I.V. Start: 9:56 AM Stop: 9:56 AM Medication: Fentanyl Amount: 25 mcg Route: I.V. Start: 9:58 AM Stop: 9:58 AM Medication: Hydralazine Amount: 10 mg Route: I.V. Start: 10:06 AM Stop: 10:06 AM Medication: Effient Amount: 50 mg Route: P.O. I, the attending physician, have reviewed and verified all procedure medications. Yes, all medications given per verbal order History/Risk Factors Hypertension: No Dyslipidemia: No Peripheral Arterial Disease (PAD): No Myocardial Infarction (AK): No Obesity: Yes Renal Disease: No Prior Interventions PCI: No CABG: No Valve Surgery: No Report Signatures Finalized by Rafa Leon MD on 08/14/2024 02:08 PM
[2024-08-10] MEDS: ipratropium-albuterol 3 mL Neb INHALATION ×2 (07:54→13:32)
[2024-08-10] MEDS: dilTIAZem 30 mg Tablet PO (08:14)
[2024-08-10] MEDS: aspirin 325 mg Tablet PO (08:14)
[2024-08-10] MEDS: citalopram 20 mg Tablet PO (08:14)
[2024-08-10] MEDS: potassium chloride ER 20 mEq Tablet PO ×3 (08:14→17:16)
[2024-08-10] MEDS: metoprolol succinate ER (24 HR) 50 mg Tablet PO ×2 (08:14→17:16)
[2024-08-10] MEDS: prasugrel 10 MG Tablet PO (08:14)
[2024-08-10] MEDS: nicotine 14 mg Patch 1 PATCH TRANSDERMA (08:15)
--- NOTE | 2024-08-10 08:21 | W.PM.OPSUD ---
Surgery/Procedure H&P Update DATE OF PROCEDURE: August 10, 2024 DATE H&P PERFORMED: 08/09/24 H&P UPDATE INFORMATION: I have reviewed H&P completed within last 30 days, I have examined patient prior to procedure and No changes to prior documentation PREOP DIAGNOSIS: NSTEMI PRIMARY INDICATION FOR PROCEDURE: NSTEMI PLANNED PROCEDURE: Operation Date: 08/10/24 08:30 Proposed Procedures p Cardiac Catheterization(Left) - Rafa Leon M.D Possible percutaneous coronary intervention PATIENT REASSESSED PRIOR TO SEDATION, WITH NO CHANGE NOTED: Yes PHYSICAL EXAM: alert, oriented x 3 and clear to auscultation bilaterally OTHER PERTINENT EXAM FINDINGS: Irregularly irregular AIRWAY EVAL/ANESTHESIA PLAN: normal airway, ASA III, Local Anesthesia, Risks, benefits & alternatives of sedation and/or procedure discussed and Patient agrees to continue as planned ADDITIONAL INFORMATION: Moderate sedation
--- NOTE | 2024-08-10 10:03 | PM.PROC ---
Procedure Note: Date of procedure: 08/10/24 Pre-procedure diagnosis: NSTEMI Post-procedure diagnosis: other (Severe OM 1 stenosis s/p PCI with 1 stent. Severe distal LCx stenosis s/p PCI with 2 stents) Procedure: Left main artery is patent. LAD is moderate diffuse disease. Left circumflex artery has distal 80% stenosis. Status post successful revascularization with 2 stents. At the very end of the vessel, there is diffuse disease. OM1 has severe stenosis. Status post successful revascularization with 1 stent. RCA is patent. Loaded with prasugrel. 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
[2024-08-10] MEDS: hyDRALAzine 20 mg/mL INJ 1 mL IVP (10:53)
[2024-08-10] MEDS: FUROsemide 10 mg/mL SDV 10mL 60 MG IVP (10:53)
--- NOTE | 2024-08-10 12:00 | XR_ITS ---
WS: [id number] Portable AP upright chest, 08/10/2024 Clinical Data: Increased shortness of breath Comparison: Portable chest, 08/08/2024 Findings: There is a patchy opacity in the right lower lobe unchanged. The pulmonary vascularity remains prominent and the heart is enlarged. The aortic arch and descending thoracic aorta show tortuosity. Monitor leads are on the chest wall. No nodules or masses are seen. No pneumothorax is seen. XR/XR chest 1V portable [id number] Impression: 1. No change in patchy opacity in right lower lobe. 2. No change in pulmonary vascular congestion, cardiomegaly and atherosclerosis .
--- NOTE | 2024-08-10 12:02 | ECG_ITS ---
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 Measurements Intervals [place] Rate: 73 P: 0 [place]: 0 QRS: -19 QRSD: 153 T: 61 QT: 395 QTc: 436 Interpretive Statements ATRIAL FIBRILLATION RIGHT BUNDLE BRANCH BLOCK [120+ ms QRS DURATION, UPRIGHT V1, 40+ ms S IN I/aVL/V4/V5/V6] VOLTAGE CRITERIA FOR LVH [MEETS CRITERIA IN ONE OF: R(aVL), S(V1), R(V5), R(V5/V6)+S(V1)] MODERATE T-WAVE ABNORMALITY, CONSIDER LATERAL ISCHEMIA [-0.1+ mV T-WAVE IN I/aVL/V5/V6] Compared to ECG 08/09/2024 01:24:40 T-wave abnormality now present Possible ischemia now present Electronically Signed On 08-15-2024 10:15:55 CDT by Rafa Leon M.D. [email or web address] [id number]
--- NOTE | 2024-08-10 12:34 | USCV_ITS ---
Ghanshyam Conway Age: 74 Gender: M : 1950 Exam Date: 08/10/2024 13:49 Ordering Phys: Rafa Leon M.D ([email or web address]) Technologist: Exam Location: [facility] Indication: ef BP: / HR: Rhythm: Sinus Technical Quality: Adequate MEASUREMENTS (Male / Female) Normal Values 2D ECHO LV Ejection Fraction MOD 4C 71.7 % LV Ejection Fraction MOD 2C 70.9 % LV Ejection Fraction 2C AL 69.2 % FINDINGS Left Ventricle Right Ventricle Right Atrium Left Atrium Mitral Valve Aortic Valve Tricuspid Valve Pulmonic Valve Pericardium Aorta IVC CONCLUSIONS Limited echocardiogram performed to assess LV systolic function and rule out pericardial effusion. LV systolic function is normal with EF of 65 to 70%. No regional wall motion abnormalities. No significant pericardial effusion seen Rafa Leon MD (Electronically Signed) Final Date: 11 Aug 2024 07:43 S
[2024-08-10] MEDS: LORazepam 2 mg/mL INJ 1 mL 1 MG IVP (12:36)
--- NOTE | 2024-08-10 12:44 | P.PN_ITS ---
Subjective 2 Subjective: Underwent coronary angiogram this morning with finding of 2 areas of severe stenosis treated with angioplasty and stent. In the afternoon complaining of difficulty getting a deep breath, without chest pain, very anxious, occasionally holding his breath. Vitals/I&O/Wt Last Vital Signs Temp 98.0 F 08/10/24 11:27 Pulse 89 08/10/24 11:27 Resp 18 08/10/24 11:27 BP 173/94 08/10/24 11:27 Pulse Ox 98 08/10/24 11:27 O2 Del Method BiPAP 08/10/24 11:27 O2 Flow Rate 1 08/09/24 21:32 FiO2 30 08/10/24 10:48 08/09/24 08/10/24 08/10/24 22:59 06:59 14:59 Intake Total 443.2 / 1097.200 0 / 1097.200 296.8 / 296.8 Output Total 690 / 1500 Balance -246.8 / -402.800 0 / -402.800 296.8 / 296.8 Weight last 48 hrs Weight 121.2 kg Weight 115.666 kg Weight 115.666 kg Weight 115.666 kg Physical Exam 2 Narrative: Accompanied by son. Const: GENERAL APPEARANCE: cooperative ORIENTATION/CONSCIOUSNESS: Yes awake OTHER: Anxious. HENMT: COMMON NORMALS: oropharynx normal Neck/C-Spine: COMMON NORMALS: no JVD Resp: COMMON NORMALS: normal respiratory effort and clear to auscultation bilaterally AUSCULTATION: clear to auscultation bilaterally Cardio: COMMON NORMALS: no JVD, regular rhythm, S1 normal heart sound present, S2 normal heart sound present and No murmurs present (Cardio) RHYTHM: regular rhythm HEART SOUNDS: S1 normal heart sound present and S2 normal heart sound present GI: COMMON NORMALS: Normal to inspection, nondistended, normoactive bowel sounds present, Soft to palpation and non-tender PALPATION: Yes Soft to palpation Extremity: COMMON NORMALS: no joint enlargement and no pedal edema Neuro: COMMON NORMALS: moves all extremities Skin: COMMON NORMALS: no rashes or lesions noted GENERAL SKIN EXAM: no rashes or lesions noted Data 08/10/24 02:47 08/10/24 02:47 A&P Assessment and plan (1) Coronary artery disease: Underwent coronary angiography with balloon angioplasty and stenting of diagonal and distal circumflex. Continued postcatheterization care on cardiac stepdown unit. In the afternoon complaining of dyspnea, being unable to catch a deep breath, without chest pain. Transiently started on BiPAP. Fluids discontinued, received a dose of Lasix, produced a liter of urine. Still very anxious. Occasionally breath-holding, possible Valsalva, EKG obtained, with atrial fibrillation, RBBB, nonspecific T wave abnormality similar to prior. No STEMI. Received a dose of Ativan. Heart rate with fluctuation 90s to low 100s down to 40s-50s. Atrial fibrillation without obvious heart block. Unclear if possibly from Valsalva, possible sick sinus syndrome. Pacing pads placed. Cardizem p.o. held for now. Bedside ultrasound by semiconductor wafers etch operator without obvious regional wall motion abnormality, without any large pericardial effusion. Additional assessment with CT angiogram PE protocol discussed with semiconductor wafers etch operator, patient and son. Proceeding with monitoring and with defibrillator at bedside, subsequently transferred to intensive care unit. Maintaining oxygen saturation 96-98 % on nasal cannula oxygen. NSTEMI on presentation with rising troponin positive delta at 2 hours and 6 hours. He had received a dose of anticoagulation with Eliquis overnight. Eliquis held. Added aspirin 325 mg. He was on prasugrel previously, but does state he missed doses. Discussed with him the importance of adherence to medications particularly antiplatelets. Continue metoprolol, statin. Monitor on telemetry with risk of arrhythmia. (2) Congestive heart failure: Received additional diuretic dose. Hold off further Lasix for now, reassess volume status. Severe LVH noted on review of echocardiogram. With initial diuresis good urine output, negative balance,, with finding of NSTEMI, appreciate cardiology consultation, consideration of further evaluation. Received potassium replacement, monitor for risk of electrolyte deficiency. Replace hypokalemia, given additional with hypokalemia despite replacement this morning. Reviewed magnesium. As needed BiPAP (3) Atrial fibrillation: Heart rate with some fluctuation, monitor for possible sick sinus syndrome. Bradycardia down as low as 38 bpm on 1 episode briefly, requiring 270s-80s spontaneously, without prolonged pauses. Discussed with cardiology during bedside evaluation, continue metoprolol, hold Cardizem for now. Monitor for risk of bradycardia, further tachycardia. Heart rate better controlled on reassessment, was switched to oral Cardizem. Continue metoprolol. Monitor for risk of hypotension. So far has been significantly hypertensive. (4) COPD (chronic obstructive pulmonary disease): Not in exacerbation (5) Sleep apnea: BiPAP (6) Noncompliance: Reinforced importance of continuing to take his medications particularly prasugrel due to risk of in-stent closure, severe and/or life-threatening [place]. Plan Smoking addiction, discussed smoking cessation with him for 3 and half minutes. He has tried multiple medications in the past, including Chantix, has not been successful in quitting. Chantix gave him bad dreams. He initially is reluctant for nicotine replacement, states it has not worked for him in the past, however, subsequent agreeable to nicotine replacement with patches and as needed lozenges at least for here. PDMP PDMP Reviewed: Not Reviewed Attestations 2 Medical Necessity Statement*: Continue admission for assessment and management of coronary disease, status post NSTEMI, atrial fibrillation, variable heart rate with intermittent bradycardia, further assessment of progressive new dyspnea. Diagnoses Coronary artery disease I25.10 Acute congestive heart failure, unspecified heart failure type I50.9 Heart failure type: unspecified Heart failure chronicity: acute Atrial fibrillation, unspecified type I48.91 Atrial fibrillation type: unspecified COPD (chronic obstructive pulmonary disease) J44.9 Sleep apnea G47.30 Noncompliance Z91.199
--- NOTE | 2024-08-10 13:08 | P.PN_ITS ---
<Statement entered by Rafa Leon M.D - 08/11/24 07:32> Patient was evaluated and cared for in conjunction with an advanced practice practitioner.? I personally examined the patient and reviewed the chart and all pertinent data including imaging, telemetry, and laboratory results.? I discussed the patient in detail with the advanced practice practitioner.? Please see? their note for complete progress note, testing results and agreed upon plan of care for the patient. GENERAL: Patient is drowsy HEART: Regular S1 and S2 LUNGS: Diminished air entry CENTRAL NERVOUS SYSTEM: Grossly nonfocal. EXTREMITIES: Lower extremities with 1+ edema Patient had successful revascularization of severe OM1 stenosis and distal left circumflex artery stenosis today. Postprocedure he was complaining of shortness of breath. He was given Lasix and responded very well with over 2 L of diuresis. Patient has obesity hypoventilation syndrome, severe sleep apnea and with other sedating medicines that he received during the procedure became drowsy. He does not sleep in the bed at home and sits up in recliner because of shortness of breath. Has been having occasional bradycardic episodes in A-fib which are likely secondary to sedatives. At this time we will watch him on telemetry. Limited echocardiogram performed to confirm no pericardial effusion. CTA ordered by primary team. Tomorrow we will convert Effient to Plavix and start eliquis Continue metoprolol. Start losartan. Thank you for involving us with care of this patient. Will continue to follow. Please call with questions Subjective 2 Subjective: Patient was seen just now due to request from nursing patient was having difficulty breathing. He was having what seemed to be like anxiety. Per Dr. Leon 1 mg ativan given IV. O2 sat normal. Patient is not able to tolerate the bipap at this time. Has brief episodes of bradycardia most likely due to speel apnea. Groin site looked good, so we elevated him slightly to about 30 degrees. X-ray done that showed no change in patchy opacity in the right lower lobe unchanged. No acute changes seen on EKG as well. Patient was able to rest after the ativan. Vitals/I&O/Wt Last Vital Signs Temp 98.0 F 08/10/24 11:27 Pulse 89 08/10/24 11:27 Resp 18 08/10/24 11:27 BP 173/94 08/10/24 11:27 Pulse Ox 98 08/10/24 11:27 O2 Del Method BiPAP 08/10/24 11:27 O2 Flow Rate 1 08/09/24 21:32 FiO2 30 08/10/24 10:48 08/09/24 08/10/24 08/10/24 22:59 06:59 14:59 Intake Total 443.2 / 1097.200 0 / 1097.200 296.8 / 296.8 Output Total 690 / 1500 Balance -246.8 / -402.800 0 / -402.800 296.8 / 296.8 Weight last 48 hrs Weight 267 lb 3.2 oz Weight 255 lb Weight 255 lb Weight 255 lb Physical Exam 2 Narrative: General: appears to have anxiety, taking shallow breaths HENMT: normoceophalic Respiratory: Normal respiratory effort, bilateral lower lobes diminished but otherwise clear throughout, no use of accessory muscles Cardio: No JVD, irregularly irregular rate and rhythm, S1 S2 normal, no murmurs, peripheral pulses 2+ radial palpated bilaterally Extremities: Full ROM, normal, normal capillary refill, no cyanosis or edema Neuro: Alert and oriented x4 Psych: Affect normal Skin: Right groin site clean, dry, intact w/o s/s of hematoma Data 08/10/24 02:47 08/10/24 02:47 A&P Assessment and plan (1) Congestive heart failure: (2) Atrial fibrillation: (3) NSTEMI (non-ST elevated myocardial infarction): Plan At this time we will avoid heart rate lowering medications. Most likely patient's bradycardia is due to apnea. This should stabilize as patient starts to wake up. Patient is being transferred to the ICU. If in about 30 minutes patient's going is stable we will allow him to raise up more to help with his breathing. Part of the issue is his obesity and Inability lie flat. He is getting a CTA chest as well. PDMP PDMP Reviewed: Not Reviewed Attestations 2 Medical Necessity Statement*: Deferred to primary Coding Level of Care Code Acute Code for [facility] Diagnoses Acute congestive heart failure, unspecified heart failure type I50.9 Heart failure type: unspecified Heart failure chronicity: acute Atrial fibrillation, unspecified type I48.91 Atrial fibrillation type: unspecified NSTEMI (non-ST elevated myocardial infarction) I21.4
--- NOTE | 2024-08-10 13:17 | CTR_ITS ---
PROCEDURE INFORMATION: Exam: CTA Chest With Contrast Exam date and time: 08/10/2024 3:51 PM Age: 74 years old Clinical indication: Dyspnea; Additional info: Dyspnea, jade episodes TECHNIQUE: Imaging protocol: Computed tomographic angiography of the chest with contrast. Exam focused on the arteries. 3D rendering (Not supervised by radiologist): MIP and/or 3D reconstructed images were created by the technologist. Radiation optimization: All CT scans at this facility use at least one of these dose optimization techniques: automated exposure control; mA and/or kV adjustment per patient size (includes targeted exams where dose is matched to clinical indication); or iterative reconstruction. Contrast material: OMNIPAQUE 350; Contrast volume: 100 ml; Contrast route: INTRAVENOUS (IV); COMPARISON: CR XR chest 1V portable [id number] 08/10/2024 12:08 PM RADIATION DOSE METRICS: Total DLP (mGy-cm): 627.51 FINDINGS: Pulmonary arteries: The main pulmonary artery is dilated to 3.9 cm. No filling defects seen to the level of the proximal subsegmental pulmonary arteries. Aorta: Mildly dilated ascending thoracic aorta measuring 4.3 cm in caliber. Mild atherosclerotic aortic calcifications. Lungs: Mild paraseptal emphysema with upper lobe predominance. Dependent atelectasis bilaterally. Ill-defined consolidation in the right lung base. 5 mm left upper lobe nodule on series 15, image 20. Pleural spaces: Unremarkable. No pneumothorax. No pleural effusion. Heart: Moderate cardiomegaly. No pericardial effusion. Mitral annular calcifications. Coronary arteries: Multivessel coronary artery calcifications. Lymph nodes: Unremarkable. No enlarged lymph nodes. Diaphragm: Asymmetric elevation of the right hemidiaphragm. Adrenal glands: Left adrenal thickening with a least 1 nodule measuring up to 3.3 cm. 1.7 cm right adrenal nodule. Kidneys: Partially imaged 1.9 cm left renal cyst. Likely excreted contrast within the right renal collecting system. Bones/joints: [id number] degenerative changes of the visualized spine. Soft tissues: Symmetric bilateral gynecomastia. CT/CT angio chest PE protcl [id number] IMPRESSION: 1. No definite pulmonary embolism. 2. Right basilar consolidation could represent atelectasis. Superimposed infection not excluded. 3. Dilated ascending thoracic aorta measuring 4.3 cm. 4. Dilated main pulmonary artery can be seen with pulmonary arterial hypertension. 5. Moderate cardiomegaly. 6. 5 mm left upper lobe nodule. For patients at low risk (minimal or absent history of smoking and of other known risk factors), no routine follow-up is indicated. For patients at high risk (history of smoking or of other known risk factors), consider optional CT Chest at 12 months. (Reference: Gomez) 7. Bilateral adrenal nodules could represent benign adenomas. Non-emergent adrenal CT is recommended. (Reference: Andrew) COMMENTS: 1. Consistent with the [employer]'s Incidental Findings Committee white paper (J Am Hermilo Radiol 2018): Any incidental renal lesion less than 1 cm or classified as too small to characterize, or any incidental cystic renal lesion characterized as simple-appearing, is likely benign. No follow-up imaging is recommended for these lesions per consensus recommendations based on imaging criteria. 2. The presence of pulmonary emphysema on CT is an independent risk factor for lung cancer. In the absence of a history or active diagnosis of lung cancer, it is recommended that this patient with emphysema be evaluated for enrollment in a low dose CT lung cancer screening program. REFERENCES: 1. Gomez Roque, et al. Guidelines for Management of Incidental Pulmonary Nodules Detected on CT Images: From the Fleisch[employer] Society 2017. Radiology. 2017;284(1):228-243. 2. Andrew FOURNIER, et al. Management of Incidental Adrenal Masses: A White Paper of the ACR Incidental Findings Committee. J Am Hermilo Radiol. 2017;14(8):5740-7290.
--- NOTE | 2024-08-10 13:43 | PC.NURSE ---
Patient arrived to ICU at 1330.
--- NOTE | 2024-08-10 13:50 | PC.NURSE ---
Patient came back from dental laboratory supervisor. TR band in place on right wrist and angioseal to right groin. Patient was very short of breath, agitated, and anxious and hypertensice. Patient received 60mg IVP lasix, and 20mg IV hydralazine and bipap. Patient continues to be short of breath and restless. Physician orders for 1mg IVP Ativan. Decision made to transfer patient to ICU. Report given to ARLENE Dias.
--- NOTE | 2024-08-10 15:31 | PC.NURSE ---
Cell phone and necklace sent home with Tate Conway [phone].
[2024-08-10] MEDS: piperacillin-tazobactam 3.375 GM in sodium chloride 0.9% (plus) 50 ML IV (17:16)
[2024-08-10] MEDS: losartan 50 mg Tablet PO (17:56)
[2024-08-10] MEDS: ondansetron 2 mg/ML SDV 2 mL 4 MG IVP (19:59)
[2024-08-10] MEDS: tamsulosin 0.4 mg Capsule PO (21:48)
[2024-08-10] MEDS: atorvastatin 40 mg Tablet 80 MG PO (21:48)
[2024-08-11] VITALS (33 sets, daily range): BP systolic 110–149; BP diastolic 76–105; PULSE 71–118; RESP 13–29; TEMP 36.4–36.7; O2SAT 80–98
[2024-08-11] MEDS: piperacillin-tazobactam 3.375 GM in sodium chloride 0.9% (plus) 50 ML IV ×3 (01:02→16:56)
[2024-08-11 04:24] LABS: Basophils % 0.2 %; Eosinophils % 0.4 %; Hematocrit 44.4 % (37-53); Lymphocytes # 1.5 10^3/uL (0.8-4.8); Lymphocytes % 14.2 %; Mean Corpuscular Hemoglobin 26.1 pg (27-33); Mean Corpuscular Volume 87.1 fl (82-101); Mean Platelet Volume 9.6 fL (7.4-10.4); Monocytes # 0.8 10^3/uL (0.2-0.9); Monocytes % 8.1 %; Neutrophils % 76.9 %; Nucleated Red Blood Cells % 0 %; Platelet Count 197 10^3/cmm (157-399); Red Cell Distribution Width 17.2 % (12.1-15.1)
[2024-08-11 04:47] LABS: Anion Gap 13.7 (5-19); Blood Urea Nitrogen 22 mg/dL (8-23); Calcium 8.6 mg/dL (8.5-10.5); Carbon Dioxide 31 mmol/L (22-29); Chloride 104 mmol/L (98-107); Creatinine Clr Calc Pharmacy 100.9938; Glucose 104 mg/dL (65-115); Osmolality Calculated 304 mOsm/kg (285-295); Potassium 3.7 mmol/L (3.5-5.1); Sodium 145 mmol/L (136-145)
--- NOTE | 2024-08-11 08:17 | FL_ITS ---
WS: [id number] Modified barium swallow, 08/11/2024 Clinical Data: Other dysphagia Comparison: None. Fluoroscopy time: 2min [id number] # of spot films: 1 Findings: The patient did have premature spillage to the piriformis. The residue cleared with double swallows. There is minimal penetration with liquids but no aspiration. There was difficulty in preparing oral material. The patient did swallow a barium tablet which stuck in the midesophagus but was propelled with the aid of water. FL/FL barium swallow modifd [id number] Impression: 1. Premature spillage which cleared with double swallows. 2. Minimal penetration with liquids but no aspiration.
[2024-08-11] MEDS: citalopram 20 mg Tablet PO (08:44)
[2024-08-11] MEDS: aspirin 325 mg Tablet PO (08:44)
[2024-08-11] MEDS: clopidogrel 300 mg Tablet 600 MG PO (08:44)
[2024-08-11] MEDS: nicotine 14 mg Patch 1 PATCH TRANSDERMA (08:44)
[2024-08-11] MEDS: potassium chloride ER 20 mEq Tablet PO ×2 (08:45→16:56)
[2024-08-11] MEDS: metoprolol succinate ER (24 HR) 50 mg Tablet 75 MG PO ×2 (08:56→16:56)
[2024-08-11] MEDS: losartan 50 mg Tablet 25 MG PO (08:56)
--- NOTE | 2024-08-11 12:14 | P.PN_ITS ---
<Statement entered by Rafa Leon M.D - 08/13/24 10:12> Patient was evaluated and cared for in conjunction with an advanced practice practitioner.? I personally examined the patient and reviewed the chart and all pertinent data including imaging, telemetry, and laboratory results.? I discussed the patient in detail with the advanced practice practitioner.? Please see? their note for complete H&P, testing results and agreed upon plan of care for the patient. Continue to diurese. Close I and Os. Continue eliquis and plavix. GENERAL: Patient is alert, awake and oriented x3. HEART: Irregularly irregular LUNGS: Diminished air entry bilaterally CENTRAL NERVOUS SYSTEM: Grossly nonfocal. EXTREMITIES: Lower extremities with 1+ edema Subjective 2 Subjective: Patient doing much better today. He is sitting up in a chair. Still requiring oxygen at 4 L nasal cannula. He was -3545 over 24 hours. Still has slight crackles in bilateral lower lobes. Slight edema present but overall stable. Creatinine is stable at 0.9. Vitals/I&O/Wt Last Vital Signs Temp 98.1 F 08/11/24 04:00 Pulse 93 08/11/24 09:30 Resp 16 08/11/24 09:30 BP 136/94 08/11/24 11:00 Pulse Ox 90 08/11/24 11:00 O2 Del Method Nasal Cannula 08/11/24 07:36 O2 Flow Rate 4 08/11/24 07:36 FiO2 30 08/11/24 04:30 08/10/24 08/11/24 08/11/24 22:59 06:59 14:59 Intake Total 290 / 586.8 290 / 876.8 250 / 250 Output Total 1475 / 3975 150 / 4125 Balance -1185 / -3388.2 140 / -3248.2 250 / 250 Weight last 48 hrs Weight 256 lb 13.416 oz Weight 256 lb 13.416 oz Weight 267 lb 3.2 oz Physical Exam 2 Narrative: General: appears to have anxiety, taking shallow breaths HENMT: normoceophalic Respiratory: Normal respiratory effort, bilateral lower lobes diminished with fine crackles but otherwise clear throughout, no use of accessory muscles Cardio: No JVD, irregularly irregular rate and rhythm, S1 S2 normal, no murmurs, peripheral pulses 2+ radial palpated bilaterally Extremities: Full ROM, normal, normal capillary refill, trace edema bilateral lower extremity Neuro: Alert and oriented x4 Psych: Affect normal Skin: Right groin site clean, dry, intact w/o s/s of hematoma , right wrist access site clean dry intact no signs of hematoma Urinary Catheter Management: Banks: Cath Placed During This Visit: yes, but has since been removed by the nurse Reason for Continuing Indwelling Catheter: Decision to DC Catheter Urinary Catheter Date of Insertion: 08/10/24 Date Urinary Catheter Removed: 08/10/24 Time Urinary Catheter Discontinued: 22:00 Data 08/11/24 03:50 08/11/24 03:50 A&P Assessment and plan (1) Congestive heart failure: (2) Atrial fibrillation: (3) NSTEMI (non-ST elevated myocardial infarction): Plan Patient is not been having any episodes of bradycardia per nursing staff will continue beta-trey and increase to 75 mg BID due to hypertension. Will go ahead and add on losartan as patient's blood pressure did get high yesterday and he responded well to the losartan. Will continue Lasix 40 twice daily with potassium replacement due to patient is still slightly fluid overloaded. He would benefit from at least staying 1 more night. So far patient is agreeable to this. He has been loaded with Plavix 600 today. Groin looks good so we we will restart Eliquis this morning. Possibly discharge tomorrow if he is doing well. Continue Plavix 75 mg and Eliquis tomorrow. PDMP PDMP Reviewed: Not Reviewed Attestations 2 Medical Necessity Statement*: Deferred to primary Coding Level of Care Code Acute Code for [facility] Diagnoses Acute congestive heart failure, unspecified heart failure type I50.9 Heart failure chronicity: acute Heart failure type: unspecified Atrial fibrillation, unspecified type I48.91 Atrial fibrillation type: unspecified NSTEMI (non-ST elevated myocardial infarction) I21.4
[2024-08-11] MEDS: ipratropium-albuterol 3 mL Neb INHALATION ×2 (13:15→19:56)
--- NOTE | 2024-08-11 13:16 | PM.PN ---
Subjective Subjective: Today he is feeling better. He reports that he intermittently chokes on drinks or saliva. He was considering leaving the hospital today due to time sensitive financial issues, however, he understands that he is not ready to discharge with risk of serious deterioration and that his condition requires further assessment management both from cardiology perspective, as well as with continued oxygen requirement of 4 L/min, previously not on oxygen, continue treatment of possible aspiration pneumonia, as well as assessment of possible oropharyngeal dysphagia and risk of aspiration. Discussed with his son as well. Vitals/I&O/Wt Last Vital Signs Temp 98.1 F 08/11/24 04:00 Pulse 93 08/11/24 09:30 Resp 16 08/11/24 09:30 BP 136/94 08/11/24 11:00 Pulse Ox 90 08/11/24 11:00 O2 Del Method Nasal Cannula 08/11/24 07:36 O2 Flow Rate 4 08/11/24 07:36 FiO2 30 08/11/24 04:30 08/10/24 08/11/24 08/11/24 22:59 06:59 14:59 Intake Total 290 / 586.8 290 / 876.8 550 / 550 Output Total 1475 / 3975 150 / 4125 Balance -1185 / -3388.2 140 / -3248.2 550 / 550 Weight last 48 hrs Weight 116.5 kg Weight 116.5 kg Weight 121.2 kg Physical Exam Narrative: Accompanied by son on second visit. At that time dressed in street clothes, but states that he is considered thanks and agreeable to stay and pursue further assessment management including barium swallow study. Const: COMMON NORMALS: patient oriented x3 and alert GENERAL APPEARANCE: cooperative ORIENTATION/CONSCIOUSNESS: Yes awake OTHER: Called, pleasant, conversant, sitting up in chair. HENMT: COMMON NORMALS: oropharynx normal Neck/C-Spine: COMMON NORMALS: no JVD Resp: COMMON NORMALS: normal respiratory effort and clear to auscultation bilaterally AUSCULTATION: clear to auscultation bilaterally Cardio: COMMON NORMALS: no JVD, regular rhythm, S1 normal heart sound present, S2 normal heart sound present and No murmurs present (Cardio) RHYTHM: regular rhythm HEART SOUNDS: S1 normal heart sound present and S2 normal heart sound present GI: COMMON NORMALS: Normal to inspection, nondistended, normoactive bowel sounds present, Soft to palpation and non-tender PALPATION: Yes Soft to palpation Extremity: COMMON NORMALS: no joint enlargement and no pedal edema Neuro: COMMON NORMALS: patient oriented x3 and moves all extremities SENSORIUM/ORIENTATION: Yes alert Skin: COMMON NORMALS: no rashes or lesions noted GENERAL SKIN EXAM: no rashes or lesions noted Urinary Catheter Management: Banks: Cath Placed During This Visit: yes, but has since been removed by the nurse Reason for Continuing Indwelling Catheter: Decision to DC Catheter Urinary Catheter Date of Insertion: 08/10/24 Date Urinary Catheter Removed: 08/10/24 Time Urinary Catheter Discontinued: 22:00 Data 08/11/24 03:50 08/11/24 03:50 A&P Assessment and plan (1) Congestive heart failure: Continue diuresis, reviewed vitals, intake and output, and negative balance. Reassess chemistry, monitor for electrolyte deficiency, acute kidney injury, hypovolemia/hypotension. Continue to monitor EXTR initially, decreased oxygen as tolerating. Discussed with nursing, cardiology, reviewed cardiology note. Can transfer out of ICU. Discussed with correctional casework specialist. Received additional diuretic dose. Hold off further Lasix for now, reassess volume status. Severe LVH noted on review of echocardiogram. With initial diuresis good urine output, negative balance,, with finding of NSTEMI, appreciate cardiology consultation, consideration of further evaluation. Received potassium replacement, monitor for risk of electrolyte deficiency. Replace hypokalemia, given additional with hypokalemia despite replacement this morning. Reviewed magnesium. As needed BiPAP (2) Aspiration pneumonia: Aspiration pneumonitis and possible pneumonia, reports intermittent choking on drink, had choked on coffee prior to arrival to the hospital, intermittently choking on saliva. Requested speech therapy assessment, MBS. Patient underwent MBS, noted mild penetration, he is still at risk of recurrent episodes of aspiration. He left for MBS, although otherwise is so nighttime limited schedule needing to return Back to [facility]. discussed with him will need to follow-up with ENT upon return home on [facility] in addition to follow-up with primary provider to further assess intermittent episodes of mild aspiration. Reinforced strict aspiration precautions as per ST instruction. He and his son verbalized understanding. (3) Coronary artery disease: Underwent coronary angiography with balloon angioplasty and stenting of diagonal and distal circumflex. Continued postcatheterization care on cardiac stepdown unit. In the afternoon complaining of dyspnea, being unable to catch a deep breath, without chest pain. Transiently started on BiPAP. Fluids discontinued, received a dose of Lasix, produced a liter of urine. Still very anxious. Occasionally breath-holding, possible Valsalva, EKG obtained, with atrial fibrillation, RBBB, nonspecific T wave abnormality similar to prior. No STEMI. Received a dose of Ativan. Heart rate with fluctuation 90s to low 100s down to 40s-50s. Atrial fibrillation without obvious heart block. Unclear if possibly from Valsalva, possible sick sinus syndrome. Pacing pads placed. Cardizem p.o. held for now. Bedside ultrasound by web merchandiser without obvious regional wall motion abnormality, without any large pericardial effusion. Additional assessment with CT angiogram PE protocol discussed with web merchandiser, patient and son. Proceeding with monitoring and with defibrillator at bedside, subsequently transferred to intensive care unit. Maintaining oxygen saturation 96-98 % on nasal cannula oxygen. NSTEMI on presentation with rising troponin positive delta at 2 hours and 6 hours. He had received a dose of anticoagulation with Eliquis overnight. Eliquis held. Added aspirin 325 mg. He was on prasugrel previously, but does state he missed doses. Discussed with him the importance of adherence to medications particularly antiplatelets. Continue metoprolol, statin. Monitor on telemetry with risk of arrhythmia. (4) Atrial fibrillation: Heart rate with some fluctuation, monitor for possible sick sinus syndrome. Bradycardia down as low as 38 bpm on 1 episode briefly, requiring 270s-80s spontaneously, without prolonged pauses. Discussed with cardiology during bedside evaluation, continue metoprolol, hold Cardizem for now. Monitor for risk of bradycardia, further tachycardia. Heart rate better controlled on reassessment, was switched to oral Cardizem. Continue metoprolol. Monitor for risk of hypotension. So far has been significantly hypertensive. (5) COPD (chronic obstructive pulmonary disease): Not in exacerbation (6) Sleep apnea: BiPAP (7) Noncompliance: Reinforced importance of continuing to take his medications particularly prasugrel due to risk of in-stent closure, severe and/or life-threatening RI. Plan Smoking addiction, discussed smoking cessation with him for 3 and half minutes. He has tried multiple medications in the past, including Chantix, has not been successful in quitting. Chantix gave him bad dreams. He initially is reluctant for nicotine replacement, states it has not worked for him in the past, however, subsequent agreeable to nicotine replacement with patches and as needed lozenges at least for here. PDMP PDMP Reviewed: Not Reviewed Attestations Medical Necessity Statement*: Continue hospitalization for assessment management of hypoxia with aspiration pneumonia, CHF in a gentleman with NSTEMI on presentation, progress coronary disease, require intervention with stenting. and High MDM includes amount and/or complexity of data reviewed/ordered [ previous or external records, resulted lab(s)/test(s), ordered lab(s)/test(s) and other healthcare professional discussion] and described risk of complication, morbidity or mortality of management as documented Diagnoses Acute congestive heart failure, unspecified heart failure type I50.9 Heart failure chronicity: acute Heart failure type: unspecified Aspiration pneumonia J69.0 Coronary artery disease I25.10 Atrial fibrillation, unspecified type I48.91 Atrial fibrillation type: unspecified COPD (chronic obstructive pulmonary disease) J44.9 Sleep apnea G47.30 Noncompliance Z91.199
[2024-08-11] MEDS: FUROsemide 10 mg/mL SDV 4mL 40 MG IVP (14:29)
--- NOTE | 2024-08-11 15:25 | PC.NURSE ---
patient refusing to wear telementry and vs leads
[2024-08-11] MEDS: apixaban 5 mg Tablet PO (16:57)
[2024-08-11] MEDS: atorvastatin 40 mg Tablet 80 MG PO (20:53)
[2024-08-11] MEDS: tamsulosin 0.4 mg Capsule PO (20:53)
[2024-08-12] MEDS: diclofenac 1% Topical Gel 100 gm 1 APPLIC TOPICAL (01:15)
[2024-08-12] MEDS: piperacillin-tazobactam 3.375 GM in sodium chloride 0.9% (plus) 50 ML IV ×2 (01:15→08:56)
[2024-08-12] MEDS: FUROsemide 10 mg/mL SDV 4mL 40 MG IVP (01:16)
[2024-08-12 02:07] VITALS: O2SAT 94
[2024-08-12 04:00] VITALS: BP 142/84; PULSE 95; RESP 19; TEMP 36.6; O2SAT 94
[2024-08-12 04:36] LABS: Basophils % 0.4 %; Eosinophils # 0.1 10^3/uL (0.0-0.8); Eosinophils % 1.7 %; Hematocrit 44.5 % (37-53); Lymphocytes # 1.8 10^3/uL (0.8-4.8); Lymphocytes % 21.9 %; Mean Corpuscular HGB Conc 29.4 g/dL (30-55); Mean Corpuscular Hemoglobin 25.5 pg (27-33); Mean Corpuscular Volume 86.6 fl (82-101); Mean Platelet Volume 9.1 fL (7.4-10.4); Monocytes # 0.7 10^3/uL (0.2-0.9); Monocytes % 8.1 %; Neutrophils # 5.63 10^3/uL (1.8-7.7); Neutrophils % 67.7 %; Nucleated Red Blood Cells % 0 %; Platelet Count 193 10^3/cmm (157-399); Red Blood Count 5.14 10^6/uL (3.85-5.65); White Blood Count 8.31 10^3/uL (3.29-11.43)
[2024-08-12 04:56] LABS: Anion Gap 12.9 (5-19); Blood Urea Nitrogen 35 mg/dL (8-23); Calcium 8.7 mg/dL (8.5-10.5); Carbon Dioxide 32 mmol/L (22-29); Chloride 101 mmol/L (98-107); Creatinine Clr Calc Pharmacy 69.8363; Glucose 105 mg/dL (65-115); Osmolality Calculated 302 mOsm/kg (285-295); Potassium 3.9 mmol/L (3.5-5.1); Sodium 142 mmol/L (136-145)
[2024-08-12] MEDS: nicotine 4 mg lozenge MUCOUS MEM (06:04)
[2024-08-12 08:00] VITALS: BP 137/94; PULSE 64; PULSE 65; RESP 18; TEMP 36.6; O2SAT 90; O2SAT 92
--- NOTE | 2024-08-12 08:10 | PC.SOCIAL ---
IMM Update pg 2 of IMM Updated and reviewed w/ patient. Copy provided and copy dated, initialed and placed in chart.
[2024-08-12] MEDS: ipratropium-albuterol 3 mL Neb INHALATION (08:28)
[2024-08-12] MEDS: potassium chloride ER 20 mEq Tablet PO (08:57)
[2024-08-12] MEDS: aspirin 325 mg Tablet PO (08:57)
[2024-08-12] MEDS: metoprolol succinate ER (24 HR) 50 mg Tablet 75 MG PO (08:57)
[2024-08-12 08:58] VITALS: BP 137/94
[2024-08-12] MEDS: losartan 50 mg Tablet 25 MG PO (08:58)
[2024-08-12] MEDS: apixaban 5 mg Tablet PO (08:59)
[2024-08-12] MEDS: clopidogrel 75 mg Tablet PO (08:59)
[2024-08-12] MEDS: citalopram 20 mg Tablet PO (08:59)
[2024-08-12] MEDS: nicotine 14 mg Patch 1 PATCH TRANSDERMA (09:00)
--- NOTE | 2024-08-12 09:41 | P.PN_ITS ---
<Statement entered by Rafa Leon M.D - 08/13/24 10:30> Patient was evaluated and cared for in conjunction with an advanced practice practitioner.? I personally examined the patient and reviewed the chart and all pertinent data including imaging, telemetry, and laboratory results.? I discussed the patient in detail with the advanced practice practitioner.? Please see? their note for complete progress note, testing results and agreed upon plan of care for the patient. Patient feeling much better. Patient is stable to be discharged from cardiology standpoint. Continue eliquis and plavix. GENERAL: Patient is alert, awake and oriented x3. HEART: Regular S1 and S2 LUNGS: Clear to auscultate bilaterally. CENTRAL NERVOUS SYSTEM: Grossly nonfocal. EXTREMITIES: Lower extremities with 1+ edema. Subjective 2 Subjective: Patient doing well. Denies any chest pain or shortness of breath. Sitting up in a chair. Not requiring O2. Vitals are stable. Vitals/I&O/Wt Last Vital Signs Temp 97.9 F 08/12/24 08:00 Pulse 65 08/12/24 08:00 Resp 18 08/12/24 08:00 BP 137/94 08/12/24 08:58 Pulse Ox 90 08/12/24 08:00 O2 Del Method Room Air 08/12/24 08:00 O2 Flow Rate 3 08/11/24 13:17 FiO2 30 08/11/24 04:30 08/11/24 08/12/24 08/12/24 22:59 06:59 14:59 Intake Total 1400 / 1950 850 / 2800 240 / 240 Output Total 450 / 450 Balance 1400 / 1950 400 / 2350 240 / 240 Weight last 48 hrs Weight 243 lb 4.8 oz Weight 256 lb 13.416 oz Weight 256 lb 13.416 oz Physical Exam 2 Narrative: General: appears to have anxiety, taking shallow breaths HENMT: normoceophalic Respiratory: Normal respiratory effort, bilateral lower lobes clear throughout, no use of accessory muscles Cardio: No JVD, irregularly irregular rate and rhythm, S1 S2 normal, no murmurs, peripheral pulses 2+ radial palpated bilaterally Extremities: Full ROM, normal, normal capillary refill, trace edema bilateral lower extremity Neuro: Alert and oriented x4 Psych: Affect normal Skin: Right groin site clean, dry, intact w/o s/s of hematoma , right wrist access site clean dry intact no signs of hematoma Urinary Catheter Management: Banks: Cath Placed During This Visit: yes, but has since been removed by the nurse Reason for Continuing Indwelling Catheter: Decision to DC Catheter Urinary Catheter Date of Insertion: 08/10/24 Date Urinary Catheter Removed: 08/10/24 Time Urinary Catheter Discontinued: 22:00 Data 08/12/24 03:54 08/12/24 03:54 A&P Assessment and plan (1) Congestive heart failure: (2) Atrial fibrillation: (3) NSTEMI (non-ST elevated myocardial infarction): Plan Patient is doing well. He states he has a f[facility]u with [facility] from in [place]. He will f/u with them as an outpatient. From our standpoint, may be discharged on Eliquis and Plavix. Montor for s/s of bleeding. Activity restrictions were given to patient. Would recommend continuing home dose of Bumex as well. PDMP PDMP Reviewed: Not Reviewed Attestations 2 Medical Necessity Statement*: Deferred to primary Coding Level of Care Code Acute Code for Chg Fwd Diagnoses Acute congestive heart failure, unspecified heart failure type I50.9 Heart failure type: unspecified Heart failure chronicity: acute Atrial fibrillation, unspecified type I48.91 Atrial fibrillation type: unspecified NSTEMI (non-ST elevated myocardial infarction) I21.4
[2024-08-12 09:56] VITALS: O2SAT 90; O2SAT 91
--- NOTE | 2024-08-12 10:39 | PM.DCS ---
Discharge Providers Date of Admission: 08/09/24 01:32 Date of Discharge: August 12, 2024 Attending Provider at Admission: Fernando Barker MD Attending Provider at Discharge: Phil Peterson MD Diagnoses at Discharge Discharge Diagnosis (1) Congestive heart failure: Status: Acute Qualifiers: Heart failure type: unspecified Heart failure chronicity: acute Qualified Code(s): I50.9 - Heart failure, unspecified (2) Atrial fibrillation: Status: Acute Qualifiers: Atrial fibrillation type: unspecified Qualified Code(s): I48.91 - Unspecified atrial fibrillation (3) NSTEMI (non-ST elevated myocardial infarction): Status: Acute Reason for Visit Reason for Visit: Chest Pains Hospital Course Hospital Course This is a 74-year-old male with a history of COPD, on home BiPAP, but did not bring his BiPAP on his trip, who is from [place], is in [facility] to visit his son, who presents [facility] due to fatigue, shortness of breath, weight gain Patient underwent cardiac catheterization: 08/10/24 Pre-procedure diagnosis: NSTEMI Post-procedure diagnosis: Severe OM 1 stenosis s/p PCI with 1 stent. Severe distal LCx stenosis s/p PCI with 2 stents Tolerated procedure well Discharged on Plavix and 5 mg daily, Eliquis 5 mg twice daily, metoprolol 75 mg twice daily, rosuvastatin For new onset A-fib with RVR, he was managed on a Cardizem drip, transition to p.o. metoprolol twice daily, Eliquis 5 mg twice daily - Patient was advised if he develops bloody or black stools please go to emergency room Develop fluid overload, diastolic CHF exacerbation during his hospitalization, requiring inpatient diuresis - On discharge he is euvolemic - Discharged on Bumex 1 mg daily, with potassium replacement therapy There was concerns for aspiration pneumonia during his hospitalization, managed on IV antibiotics, underwent modified barium swallow with no significant radiographic evidence of aspiration, nonetheless discharged on p.o. antibiotics, with aspiration precautions, follow-up with primary care Patient was found to have a dilated ascending thoracic aorta, discussed blood pressure management, following up with primary care He has a 5 mm left upper lobe lung nodule, with his history of smoking this needs to be monitored up to primary care He also has bilateral adrenal nodules, which need to be monitored through primary care or oncology Patient was advised of smoking cessation counseling Physical Exam Const: COMMON NORMALS: no acute distress and patient oriented x3 Resp: COMMON NORMALS: normal respiratory effort, No retractions, No use of accessory muscles and clear to auscultation bilaterally AUSCULTATION: clear to auscultation bilaterally Cardio: COMMON NORMALS: regular rate, regular rhythm, S1 normal heart sound present and S2 normal heart sound present RATE: regular rate RHYTHM: regular rhythm HEART SOUNDS: S1 normal heart sound present and S2 normal heart sound present GI: COMMON NORMALS: Normal to inspection, nondistended, normoactive bowel sounds present and non-tender Extremity: COMMON NORMALS: no pedal edema Neuro: COMMON NORMALS: patient oriented x3 Psych: COMMON NORMALS: mental status grossly normal Urinary Catheter Management: Banks: Cath Placed During This Visit: yes, but has since been removed by the nurse Reason for Continuing Indwelling Catheter: Decision to DC Catheter Urinary Catheter Date of Insertion: 08/10/24 Date Urinary Catheter Removed: 08/10/24 Time Urinary Catheter Discontinued: 22:00 Discharge Data Studies Completed and Pending Completed Studies During Hospitalization Category Date Time Status CTA PE [CT angio chest PE protcl [id number]] Stat Cat Scan 08/10/24 13:17 Completed CXRP [XR chest 1V portable [id number]] Stat Exams 08/10/24 12:00 Completed Modified barium swallow [FL barium swallow modifd [id number] Exams 08/11/24 08:17 Completed ] Routine XR chest 1V portable [id number] Stat Exams 08/08/24 20:35 Completed CV. echo complete* [id number] Routine Ultrasound 08/09/24 08:06 Completed CV. echo limited [id number] Stat Ultrasound 08/10/24 12:34 Completed Pending at discharge Category Date Time Status CHE[employer]ER request for service Routine Exams 08/10/24 07:19 Taken Radiology Impressions Chest X-Ray 08/10/24 12:00 Impression: 1. No change in patchy opacity in right lower lobe. 2. No change in pulmonary vascular congestion, cardiomegaly and atherosclerosis. Chest CTA 08/10/24 13:17 IMPRESSION: 1. No definite pulmonary embolism. 2. Right basilar consolidation could represent atelectasis. Superimposed infection not excluded. 3. Dilated ascending thoracic aorta measuring 4.3 cm. 4. Dilated main pulmonary artery can be seen with pulmonary arterial hypertension. 5. Moderate cardiomegaly. 6. 5 mm left upper lobe nodule. For patients at low risk (minimal or absent history of smoking and of other known risk factors), no routine follow-up is indicated. For patients at high risk (history of smoking or of other known risk factors), consider optional CT Chest at 12 months. (Reference: Gomez) 7. Bilateral adrenal nodules could represent benign adenomas. Non-emergent adrenal CT is recommended. (Reference: Andrew) COMMENTS: 1. Consistent with the [employer]'s Incidental Findings Committee white paper (J Am Hermilo Radiol 2018): Any incidental renal lesion less than 1 cm or classified as too small to characterize, or any incidental cystic renal lesion characterized as simple-appearing, is likely benign. No follow-up imaging is recommended for these lesions per consensus recommendations based on imaging criteria. 2. The presence of pulmonary emphysema on CT is an independent risk factor for lung cancer. In the absence of a history or active diagnosis of lung cancer, it is recommended that this patient with emphysema be evaluated for enrollment in a low dose CT lung cancer screening program. REFERENCES: 1. Gomez Roque, et al. Guidelines for Management of Incidental Pulmonary Nodules Detected on CT Images: From the Fleischner Society 2017. Radiology. 2017;284(1):228-243. 2. Andrew FOURNIER, et al. Management of Incidental Adrenal Masses: A White Paper of the ACR Incidental Findings Committee. J Am Hermilo Radiol. 2017;14(8):4222-6645. Modified Barium Swallow 08/11/24 08:17 Impression: 1. Premature spillage which cleared with double swallows. 2. Minimal penetration with liquids but no aspiration. Laboratory Results WBC 8.31 10^3/uL (3.29-11.43) 08/12/24 03:54 RBC 5.14 10^6/uL (3.85-5.65) 08/12/24 03:54 Hgb 13.10 g/dL (11.27-16.99) 08/12/24 03:54 Hct 44.5 % (37-53) 08/12/24 03:54 MCV 86.6 fl (82-101) 08/12/24 03:54 MCH 25.5 pg (27-33) L 08/12/24 03:54 MCHC 29.4 g/dL (30-55) L 08/12/24 03:54 RDW 17.0 % (12.1-15.1) H 08/12/24 03:54 Plt Count 193 10^3/cmm (157-399) 08/12/24 03:54 MPV 9.1 fL (7.4-10.4) 08/12/24 03:54 Neut % (Auto) 67.7 % 08/12/24 03:54 Lymph % (Auto) 21.9 % 08/12/24 03:54 [place] % (Auto) 8.1 % 08/12/24 03:54 Eos % (Auto) 1.7 % 08/12/24 03:54 Baso % (Auto) 0.4 % 08/12/24 03:54 Neut # (Auto) 5.63 10^3/uL (1.8-7.7) 08/12/24 03:54 Lymph # (Auto) 1.8 10^3/uL (0.8-4.8) 08/12/24 03:54 [place] # (Auto) 0.7 10^3/uL (0.2-0.9) 08/12/24 03:54 Eos # (Auto) 0.1 10^3/uL (0.0-0.8) 08/12/24 03:54 Baso # (Auto) 0.0 10^3/uL (0.0-0.1) 08/12/24 03:54 Nucleated RBC % (auto) 0 % 08/12/24 03:54 Nucleated RBCs # 0.0 /100WBC 08/12/24 03:54 PT 13.60 SECONDS (12.1-14.9) 08/08/24 20:28 INR 0.98 (0.8-1.2) 08/08/24 20:28 APTT 44.7 SECONDS (23.9-36.7) H 08/10/24 02:47 Sodium 142 mmol/L (136-145) 08/12/24 03:54 Potassium 3.9 mmol/L (3.5-5.1) 08/12/24 03:54 Chloride 101 mmol/L (98-107) 08/12/24 03:54 Carbon Dioxide 32 mmol/L (22-29) H 08/12/24 03:54 Anion Gap 12.9 (5-19) 08/12/24 03:54 BUN 35 mg/dL (8-23) H 08/12/24 03:54 Creatinine 1.1 mg/dL (0.7-1.2) 08/12/24 03:54 GFR Calculation Not Reportable 08/12/24 03:54 Glucose 105 mg/dL (65-115) 08/12/24 03:54 Calculated Osmolality 302 mOsm/kg (285-295) H 08/12/24 03:54 Calcium 8.7 mg/dL (8.5-10.5) 08/12/24 03:54 Phosphorus 3.9 mg/dL (2.5-4.5) 08/10/24 02:47 Magnesium 1.9 mg/dL (1.7-2.3) 08/10/24 02:47 Total Bilirubin 0.2 mg/dL (0.15-1.2) 08/08/24 20:28 AST 15 U/L (0-40) 08/08/24 20:28 ALT 11 U/L (0-41) 08/08/24 20:28 Alkaline Phosphatase 73 U/L (40-130) 08/08/24 20:28 Troponin T Baseline 34 ng/L (0-15) H 08/08/24 20:28 Troponin T 120 Minute 60.17 ng/L (0-15) H 08/08/24 22:24 Delta Troponin T 26.17 ABS# (0-10) H* 08/08/24 22:24 Troponin T Hi Sens 6Hr 102.2 ng/L (0-15) H 08/09/24 02:35 Troponin T Hi Sens 6Hr Delta 68.2 ng/L (0-12) H* 08/09/24 02:35 NT-Pro-B Natriuret Pep 1904 pg/mL (0-125) H 08/08/24 20:28 Total Protein 7.2 g/dL (6.6-8.7) 08/08/24 20:28 Albumin 4.2 g/dL (3.5-5.2) 08/08/24 20:28 Globulin 3.0 g/dL (1.3-4.6) 08/08/24 20:28 Vitals Last Vital Signs Temp 97.9 F 08/12/24 08:00 Pulse 65 05/02/25 08:00 Resp 18 08/12/24 08:00 BP 137/94 08/12/24 08:58 Pulse Ox 90 08/12/24 09:56 O2 Del Method Room Air 08/12/24 08:00 O2 Flow Rate 3 08/11/24 13:17 FiO2 30 08/11/24 04:30 Discharge Plan Discharge Patient Disposition: Home Condition: Stable Prescriptions: New Eliquis 5 mg Tablet 5 mg PO BID 30 Days Qty: 60 0RF losartan 50 mg Tablet 25 mg PO DAILY 30 Days Qty: 15 0RF metoprolol succinate 50 mg Tablet Extended Release 24 Hr 75 mg PO BID 30 Days Qty: 90 0RF clopidogrel 75 mg Tablet 75 mg PO DAILY 30 Days Qty: 30 0RF potassium chloride [Klor-Con M20] 20 mEq Tablet,Er Particles/Crystals 20 meq PO DAILY 30 Days Qty: 60 0RF nitroglycerin 0.4 mg Tablet, Sublingual 0.4 mg sublingual Q5M PRN (Reason: Chest Pain) 30 Days Qty: 30 0RF amoxicillin-pot clavulanate 875-125 mg tablet 1 tab PO BID 5 Days Qty: 10 0RF albuterol sulfate 90 mcg/actuation aero powdr breath act w/sensor 1 inh inhalation Q6H PRN (Reason: shortness of breath) Qty: 1 0RF Continued cyclobenzaprine 10 mg tablet 10 mg PO TID PRN (Reason: muscle spasms) citalopram 20 mg tablet 20 mg PO DAILY tamsulosin 0.4 mg capsule 0.4 mg PO BEDTIME Trelegy Ellipta 100-62.5-25 mcg Blister With Device 1 inh INHALATION DAILY bumetanide 1 mg Tablet 1 mg PO DAILY 30 Days Qty: 30 0RF rosuvastatin 40 mg tablet 40 mg PO BEDTIME 30 Days Qty: 30 0RF Discontinued carvedilol 25 mg tablet 25 mg PO BID amlodipine 10 mg tablet 10 mg PO DAILY betamethasone dipropionate 0.05 % cream 1 applic TOPICAL DAILY PRN (Reason: Skin Irritation) prasugrel HCl 10 mg tablet 10 mg PO DAILY Discharge Orders: Discharge Order (Routine); Ordered 08/12/24 Ordered By: Phil Peterson Other Ambulatory Orders: DME: Oxygen (Order) Location: None Selected Ordered By: Osiel Jones Discharge Diet: Cardiac Discharge Activity: Resume usual activity Patient Instructions: Coronary Angioplasty (DC), Sleep Apnea (GEN), Aspiration Pneumonia (DC), Aspiration Precautions (ED), Opioid Safety Activity Restrictions/Additional Instructions: - You had 3 stents placed in your heart - Left circumflex artery had 2 stents placed - OM1 had 1 stent placed -Please continue taking Plavix 75 mg daily, and Crestor, and metoprolol - You have congestive heart failure, we discharged you on Bumex and potassium -Your sonogram of your heart shows your heart function 65 to 70%, - You have new onset atrial fibrillation we have discharged on Eliquis 5 mg twice daily - Eliquis is a very strong blood thinner, if you develop bloody or black stools, please immediately go to the emergency room - We discharged you on antibiotics for aspiration pneumonia, however your modified barium swallow did not show any significant evidence of aspiration, nonetheless please use aspiration precautions - Please follow-up with your primary care provider - 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 - If you develop recurrent chest pain go to the emergency room - Please use your home BiPAP as prescribed - Please stop smoking -You have a dilated ascending thoracic aorta 4.3 cm that needs to be monitored by primary care and cardiology -You have a 5 mm left upper lobe lung nodule that needs to be monitored as outpatient, in addition you have bilateral adrenal nodules that need to be monitored through your primary care or pulmonary or oncology Discharge Attestations Time Spent in Discharge Care*: greater than 30 min Quality Metrics Clinical Quality Measures [ No reported AMI, CVA or VTE this stay] Coding Level of Care Code 39302 Total time (in minutes) for Discharge: 45 Diagnoses Acute congestive heart failure, unspecified heart failure type I50.9 Heart failure type: unspecified Heart failure chronicity: acute Atrial fibrillation, unspecified type I48.91 Atrial fibrillation type: unspecified NSTEMI (non-ST elevated myocardial infarction) I21.4
[2024-08-12 10:54] VITALS: BP 137/94; PULSE 80; RESP 18; O2SAT 94
--- NOTE | 2024-08-12 11:58 | PC.NURSE ---
discharge meds supplied by meds to beds program.discharge instructions given and explained.pt and son verb understanding of instructions.discharged via w/c to exit at this time.son to drive pt home.
--- NOTE | 2024-08-12 12:00 | PC.NURSE ---
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
== END 2024-08-12 12:01 | disposition home or self-care (01) | DRG 321 ==
LOC: ER 23:20 → CSU 08-09 01:41 → ICU 08-10 12:51 → CSU 08-11 15:52
PROVIDERS: Internal Medicine; Nurse Practitioner Family; Admitting Provider Internal Medicine; Emergency Provider Student in an Organized Health Care Education/Training Program; Visit Provider Family Medicine
PROC: 027136Z Dilation of Coronary Artery, Two Arteries with Three Drug-eluting Intraluminal Devices, Percutaneous Approach (ICD-10-PCS; principal; 2024-08-10 08:30)
PROC: 027136Z Dilation of Coronary Artery, Two Arteries with Three Drug-eluting Intraluminal Devices, Percutaneous Approach (ICD-10-PCS; 2024-08-10 08:30)
DX: I21.4 Non-ST elevation (NSTEMI) myocardial infarction (principal); I50.33 Acute on chronic diastolic (congestive) heart failure; J69.0 Pneumonitis due to inhalation of food and vomit; J44.9 Chronic obstructive pulmonary disease, unspecified; I25.10 Atherosclerotic heart disease of native coronary artery without angina pectoris; I48.91 Unspecified atrial fibrillation; F17.210 Nicotine dependence, cigarettes, uncomplicated; G47.00 Insomnia, unspecified; Z91.199 Patient's noncompliance with other medical treatment and regimen due to unspecified reason; I77.811 Abdominal aortic ectasia; R91.1 Solitary pulmonary nodule; E27.8 Other specified disorders of adrenal gland
CPT/HCPCS: 36415; 51702; 71045; 71275; 74230; 80048; 80053; 83735; 83880; 84100; 84484; 85025; 85049; 85347; 85610; 85730; 92523; 92526; 92610; 92611; 93005; 93306; 93308; 93454; 94640; 94660; 94664; 94760; 96374; 96375; 96376; 99152; 99153; 99285; C1725; C1760; C1769; C1874; C1887; C1894; C9600; C9601; G0269; J0360; J1200; J1644; J1938; J1940; J2060; J2250; J2405; J2543; J3010; J3475; J3490; J7030; J9999; Q9967

== ENCOUNTER 2024-08-14 14:12 | Inpatient (IN) | payer MEDICARE, SELFPAY ==
[2024-08-14] VITALS (60 sets, daily range): BP systolic 154–197; BP diastolic 96–152; PULSE 68–110; RESP 15–33; TEMP 36.7–36.8; O2SAT 88–96; BMI 35.9; BMI 37.6
--- NOTE | 2024-08-14 14:22 | ECG_ITS ---
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 Measurements Intervals [place] Rate: 100 P: 0 IA: 0 QRS: 18 QRSD: 146 T: 50 QT: 378 QTc: 488 Interpretive Statements ATRIAL FIBRILLATION WITH RAPID VENTRICULAR RESPONSE RIGHT BUNDLE BRANCH BLOCK [120+ ms QRS DURATION, UPRIGHT V1, 40+ ms S IN I/aVL/V4/V5/V6] Compared to ECG 08/10/2024 12:07:10 Left ventricular hypertrophy no longer present T-wave abnormality no longer present Possible ischemia no longer present Electronically Signed On 08-15-2024 09:17:15 CDT by Rafa Leon M.D. [id number]
--- NOTE | 2024-08-14 14:37 | XRR_ITS ---
PROCEDURE INFORMATION: Exam: XR Chest Exam date and time: 08/14/2024 2:56 PM Age: 74 years old Clinical indication: Chest pressure; Prior surgery; Surgery date: 3-7 days post-operative; Chest pain; SOB; Cardiac stent placement x 3 days ago TECHNIQUE: Imaging protocol: Radiologic exam of the chest. Views: 1 view. COMPARISON: CT angio chest PE protcl [id number] 08/10/2024 3:51 PM FINDINGS: Lungs: There is ill-defined opacity in the right lung base, corresponding to atelectasis and volume loss on the prior CT. Left lung is clear. Pleural spaces: There is no pleural effusion or pneumothorax. Heart/Mediastinum: There is moderate enlargement of the cardiac silhouette. Vasculature: The thoracic aorta is tortuous and ectatic. Bones/joints: Bones are unremarkable. XR/XR chest 1V portable [id number] IMPRESSION: 1. Persistent opacity in the right lung base corresponding to atelectasis and volume loss on CT 08/10/2024. Infection is not excluded. 2. Cardiac enlargement.
[2024-08-14 14:49] LABS: Basophils # 0.1 10^3/uL (0.0-0.1); Basophils % 0.5 %; Eosinophils # 0.1 10^3/uL (0.0-0.8); Eosinophils % 1.1 %; Hematocrit 46.5 % (37-53); Lymphocytes % 21.7 %; Mean Corpuscular HGB Conc 29.9 g/dL (30-55); Mean Corpuscular Hemoglobin 25.9 pg (27-33); Mean Corpuscular Volume 86.6 fl (82-101); Mean Platelet Volume 10.3 fL (7.4-10.4); Monocytes # 0.7 10^3/uL (0.2-0.9); Monocytes % 7.9 %; Neutrophils # 6.41 10^3/uL (1.8-7.7); Neutrophils % 68.3 %; Nucleated Red Blood Cells % 0 %; Platelet Count 206 10^3/cmm (157-399); Red Blood Count 5.37 10^6/uL (3.85-5.65); White Blood Count 9.39 10^3/uL (3.29-11.43)
[2024-08-14] MEDS: ipratropium-albuterol 3 mL Neb INHALATION (15:22)
[2024-08-14 15:51] LABS: Troponin(5th) Baseline 51 ng/L (0-15)
[2024-08-14 15:59] LABS: Alanine Aminotransferase 22 U/L (0-41); Albumin Level 3.5 g/dL (3.5-5.2); Alkaline Phosphatase 57 U/L (40-130); Anion Gap 13.8 (5-19); Aspartate Amino Transferase 18 U/L (0-40); Blood Urea Nitrogen 23 mg/dL (8-23); Calcium 8.9 mg/dL (8.5-10.5); Carbon Dioxide 27 mmol/L (22-29); Chloride 102 mmol/L (98-107); Creatinine Clr Calc Pharmacy 102.1616; Globulin 3.2 g/dL (1.3-4.6); Glucose 101 mg/dL (65-115); NT Pro B Type Natriuretic Pept 7067 pg/mL (0-125); Osmolality Calculated 292 mOsm/kg (285-295); Potassium 3.8 mmol/L (3.5-5.1); Sodium 139 mmol/L (136-145); Total Bilirubin 0.4 mg/dL (0.15-1.2); Total Protein 6.7 g/dL (6.6-8.7)
--- NOTE | 2024-08-14 16:35 | ED_ITS ---
HPI - Chest Pain 2 General: Chief Complaint: Chest Pain Stated Complaint: chest pain, sob Time Seen by Provider: 08/14/24 14:24 History of Present Illness: 74-year-old male brought in due to chest pain and shortness of breath. Family also reports he is a little bit fatigued and more lethargic than normal. Patient was just recently discharged here following stent placement of 2 stents following [place] mom with concerns for some aspiration pneumonia. He has a history of CHF and COPD. When he arrived he was in the mid 80s on room air. He does wear a CPAP but does not wear oxygen during the day. Patient not having active chest pain at this time. Patient reports ports he took 4 nitros last night and felt like he had some mild relief with them. Associated symptoms: Reports dyspnea; Deny fever(s) Related Data Home Medications ?Medication ?Instructions ?Recorded ?Confirmed citalopram 20 mg tablet 20 mg PO DAILY 08/09/24 0508/05 cyclobenzaprine 10 mg tablet 10 mg PO TID PRN muscle s pasms 08/09/24 08/14/24 fluticasone fur. 100 mcg-umeclid 1 inh inhalation PRATIBHA Y 08/09/24 08/14/24 62.5 mcg-vilant 25 mcg inhalat.powder (Trelegy Ellipta) tamsulosin 0.4 mg capsule 0.4 mg PO BEDTIME 08/09/24 0 08/14/24 Previous Rx's ?Medication ?Instructions ?Recorded albuterol sulfate 90 mcg/actuation 1 inh inhalation Q6 H PRN shortness 08/12/24 breath activated powder of breath #1 ea inhaler,sensor amoxicillin 875 mg-potassium 1 tab PO BID 5 days #10 t abs 08/12/24 clavulanate 125 mg tablet apixaban 5 mg tablet (Eliquis) 5 mg PO BID 30 days #60 tabs 08/12/24 bumetanide 1 mg tablet 1 mg PO DAILY 30 days #30 ta bs 08/12/24 clopidogrel 75 mg tablet 75 mg PO DAILY 30 days #30 t abs 08/12/24 losartan 50 mg tablet 25 mg (1/2 x 50 mg) PO DAILY 30 08/12/24 days #15 tabs metoprolol succinate 50 mg 75 mg (1.5 x 50 mg) PO BID 30 days 08/12/24 tablet,extended release 24 hr #90 tabs nitroglycerin 0.4 mg sublingual 0.4 mg sublingual Q5M PRN Chest 08/12/24 tablet Pain 30 days #30 tabs potassium chloride 20 mEq 20 meq PO DAILY 30 days #60 tabs 08/12/24 tablet,extended release(part/cryst) (Klor-Con M) rosuvastatin 40 mg tablet 40 mg PO BEDTIME 30 days #30 tabs 08/12/24 Allergies Allergy/AdvReac Type Severity Reaction Status Date / Time No Known Allergies Allergy Verified 08/08/24 20:31 Review of Systems 2 Const: Reports: fatigue and malaise; Denies: fever(s) or chills Card: Reports: chest pain and irregular heart rhythm Resp: Reports: dyspnea; Denies: productive cough Neuro: Denies: headache(s) PFSH ED 2 PFSH: Medical History (Updated 08/14/24 @ 17:12 by Jesse Thomas MD) Uses bilevel positive airway pressure (BPAP) ventilation at home Brain tumor Sleep apnea COPD (chronic obstructive pulmonary disease) Coronary artery disease Congestive heart failure Atrial fibrillation Surgical History (Updated 08/09/24 @ 01:49 by Fernando Barker MD) H/O craniotomy History of herniorrhaphy Hx of total knee arthroplasty Social History (Updated 08/09/24 @ 01:49 by Fernando Barker MD) Smoking and tobacco/nicotine status: current every day tobacco/nicotine user cigarettes Alcohol intake: former Additional social history: He wants full CODE STATUS Physical Exam 2 Const: COMMON NORMALS: patient oriented x3 GENERAL APPEARANCE: cooperative and other (Fatigued) HENMT: COMMON NORMALS: normocephalic and hearing grossly normal bilaterally HEAD & SCALP: normocephalic Resp: EFFORT & INSPECTION: Yes able to speak in complete sentences A USCULTATION: diminished lung sounds Cardio: RATE: tachycardic RHYTHM: abnormal rhythm irregularly irregular GI: COMMON NORMALS: Soft to palpation and non-tender PALPATION: Yes Soft to palpation Neuro: COMMON NORMALS: patient oriented x3, no focal motor deficits and no sensory deficits noted Psych: COMMON NORMALS: mental status grossly normal and cooperative Course 2 Vital Signs: Vital signs: Vital Signs Temperature 98.2 F 08/14/24 14:24 Pulse Rate 94 08/14/24 17:15 Respiratory Rate 18 08/14/24 17:15 Blood Pressure 192/152 08/14/24 17:15 Pulse Oximetry 93 08/14/24 17:15 Oxygen Delivery Me thod Nasal Cannula 08/14/24 17:15 Oxygen Flow Rate 2 08/14/24 17:15 MDM - Chest Pain Medical Decision Making Patient's diagnostic studies were reviewed and interpreted by me. Patient does have elevated BNP, slight elevation in troponin. This is likely due to recent stent placement. Patient EKG does show atrial fib with heart rate right around the 100. Throughout his stay it was running about 75-100. At this time did not treat as it is within acceptable rate. Patient's chest x-ray shows cardiomegaly but no acute fluid overload or edema. Patient did feel better following a DuoNeb treatment. Patient has likely multifactorial cause of his feeling of shortness of breath and hypoxemia.. Patient will be admitted to Dr. Huggins for further inpatient management. Lab Data 08/14/24 14:43 08/14/24 15:27 Radiology Impressions Chest X-Ray 08/14/24 14:37 IMPRESSION: 1. Persistent opacity in the right lung base corresponding to atelectasis and volume loss on CT 08/10/2024. Infection is not excluded. 2. Cardiac enlargement. Laboratory Results WBC 9.39 10^3/uL (3.29-11.43) 08/14/24 14:43 RBC 5.37 10^6/uL (3.85-5.65) 08/14/24 14:43 Hgb 13.90 g/dL (11.27-16.99) 08/14/24 14:43 Hct 46.5 % (37-53) 08/14/24 14:43 MCV 86.6 fl (82-101) 08/14/24 14:43 MCH 25.9 pg (27-33) L 08/14/24 14:43 MCHC 29.9 g/dL (30-55) L 08/14/24 14:43 RDW 17.0 % (12.1-15.1) H 08/14/24 14:43 Plt Count 206 10^3/cmm (157-399) 08/14/24 14:43 MPV 10.3 fL (7.4-10.4) 08/14/24 14:43 Neut % (Auto) 68.3 % 08/14/24 14:43 Lymph % (Auto) 21.7 % 08/14/24 14:43 [place] % (Auto) 7.9 % 08/14/24 14:43 Eos % (Auto) 1.1 % 08/14/24 14:43 Baso % (Auto) 0.5 % 08/14/24 14:43 Neut # (Auto) 6.41 10^3/uL (1.8-7.7) 08/14/24 14:43 Lymph # (Auto) 2.0 10^3/uL (0.8-4.8) 08/14/24 14:43 [place] # (Auto) 0.7 10^3/uL (0.2-0.9) 08/14/24 14:43 Eos # (Auto) 0.1 10^3/uL (0.0-0.8) 08/14/24 14:43 Baso # (Auto) 0.1 10^3/uL (0.0-0.1) 08/14/24 14:43 Nucleated RBC % (auto) 0 % 08/14/24 14:43 Nucleated RBCs # 0.0 /100WBC 08/14/24 14:43 Sodium 139 mmol/L (136-145) 08/14/24 15:27 Potassium 3.8 mmol/L (3.5-5.1) 08/14/24 15:27 Chloride 102 mmol/L (98-107) 08/14/24 15:27 Carbon Dioxide 27 mmol/L (22-29) 08/14/24 15:27 Anion Gap 13.8 (5-19) 08/14/24 15:27 BUN 23 mg/dL (8-23) 08/14/24 15:27 Creatinine 0.6 mg/dL (0.7-1.2) L 08/14/24 15:27 GFR Calculation Not Reportable 08/14/24 15:27 Glucose 101 mg/dL (65-115) 08/14/24 15:27 Calculated Osmolality 292 mOsm/kg (285-295) 08/14/24 15:27 Lactic Acid 0.9 mmol/L (0.5-2.2) 08/14/24 15:27 Calcium 8.9 mg/dL (8.5-10.5) 08/14/24 15:27 Iron Cancelled 08/14/24 15:27 TIBC Cancelled 08/14/24 15:27 % Saturation Cancelled 08/14/24 15:27 Unsat Iron Binding Cancelled 08/14/24 15:27 Total Bilirubin 0.4 mg/dL (0.15-1.2) 08/14/24 15:27 AST 18 U/L (0-40) 08/14/24 15:27 ALT 22 U/L (0-41) 08/14/24 15:27 Alkaline Phosphatase 57 U/L (40-130) 08/14/24 15:27 Troponin T Baseline 51 ng/L (0-15) H 08/14/24 15:27 NT-Pro-B Natriuret Pep 7067 pg/mL (0-125) H 08/14/24 15:27 Total Protein 6.7 g/dL (6.6-8.7) 08/14/24 15:27 Albumin 3.5 g/dL (3.5-5.2) 08/14/24 15:27 Globulin 3.2 g/dL (1.3-4.6) 08/14/24 15:27 Procalcitonin 0.05 ng/mL (0-0.5) 08/14/24 15:27 TSH 3.71 uIU/mL (0.27-4.20) 08/14/24 15:27 All radiology interpretation(s) finalized by discharge Discharge Plan Discharge Patient Disposition: Admitted As Inpatient Admit Provider: Jesse Thomas Clinical Impression: Atrial fibrillation, COPD (chronic obstructive pulmonary disease), Congestive heart failure Condition: Stable Coding Level of Care Code ED Washer Off for Primo Guerrero
--- NOTE | 2024-08-14 16:37 | ECG_ITS ---
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 Measurements Intervals [place] Rate: 94 P: 0 CA: 0 QRS: 10 QRSD: 149 T: 61 QT: 414 QTc: 518 Interpretive Statements ATRIAL FIBRILLATION INTRAVENTRICULAR CONDUCTION DELAY [130+ ms QRS DURATION] Compared to ECG 08/14/2024 14:22:15 Intraventricular conduction delay now present Right bundle-branch block no longer present Electronically Signed On 08-15-2024 10:21:55 CDT by Rafa Leon M.D. [email or web address]
--- NOTE | 2024-08-14 16:46 | P.HP_ITS ---
Providers/Chief Complaint 2 Chief Complaint: chest pain, sob History of Present Illness Ghanshyam Conway is a 74 year old male with past medical history of COPD on home BiPAP, not using BiPAP since he traveled from [place] to [place], CAD/non- ST elevation RI within last 1 week post PCI to LCx and OM1, A-fib with RVR, recently started on Eliquis for anticoagulation who was discharged on diuretic therapy, Eliquis and Augmentin for lower lobe pneumonia presents to the ER today because of chest discomfort and difficulty in breathing. As per the ER physician patient was found to be hypoxic down to mid 80s on room air improving with nebulization treatment on 2 L of oxygen and desaturating on room air again hence hospitalist service was consulted for further evaluation and management. Review of Systems 2 General: Reports: 10 or more systems reviewed and unremarkable except in HPI and below Const: Denies: fever(s), chills, body aches, change in appetite, change in weight, malaise, night sweats, diaphoresis, change in sleep pattern, daytime sleepiness or snoring Eyes: Denies: change in vision, blurry vision, photophobia, eye discomfort or eye discharge ENMT: Denies: throat pain, enlarged tonsils, hoarseness, mouth pain, oral sores, dry mouth, tinnitus, nasal congestion or post nasal drip Card: Denies: chest pain, palpitations, irregular heart rhythm, edema, swelling of feet/ankles, lightheadedness, syncope, pre-syncope, dyspnea on exertion, orthopnea, leg pain with exertion or acrocyanosis Resp: Denies: dyspnea, productive cough, non-productive cough, wheezing, stridor, pain on inspiration, change in phlegm color, hemoptysis or chest congestion GI: Denies: abdominal pain, nausea, vomiting, hematemesis, coffee ground emesis, dysphagia, heartburn, diarrhea, constipation, bloating, GI cramping, change in bowel habits, pain on defecation, hematochezia or melena : Denies: flank pain, difficulty urinating, dysuria, urinary frequency, urinary urgency, urinary hesitancy, urinary dribbling, difficulty starting urination, change in urine stream, nocturia or hematuria Musc: Denies: neck pain, back pain, extremity pain, joint pain, joint swelling, joint redness, joint stiffness or limited range of motion Neuro: Denies: headache(s), numbness in extremities, weakness in extremities, sensory changes, lack of coordination, difficulty walking, frequent falls, dizziness, vertigo, confusion, Slurred speech present, difficulty communicating thoughts or seizure-like activity Psych: Denies: anxiety, depression, mood swings, panic attacks, hopelessness or irritability Endo: Denies: polyuria, polydipsia, tired all the time, cold intolerance, excessive sweating, flushing or heat intolerance Kian/Lymph: Denies: easy bruising or easy bleeding All/Imm: Denies: tongue swelling, facial swelling or acute wheezing Medications/Allergies Home Medications ?Medication ?Instructions ?Recorded ?Confirmed ?Last Taken ?Type citalopram 20 mg tablet 20 mg PO DAILY 08/09/2408/05 2 Weeks Ago History ~07/26/24 cyclobenzaprine 10 mg tablet 10 mg PO TID PRN muscle s pasms 08/09/24 08/14/24 Unknown History fluticasone fur. 100 mcg-umeclid 1 inh inhalation PRATIBHA Y 08/09/24 08/14/24 08/08/24 History 62.5 mcg-vilant 25 mcg inhalat.powder (Trelegy Ellipta) tamsulosin 0.4 mg capsule 0.4 mg PO BEDTIME 08/09/24 0 08/14/24 2 Weeks Ago History ~07/26/24 albuterol sulfate 90 mcg/actuation 1 inh inhalation Q6 H PRN shortness 08/12/24 08/14/24 Unknown Rx breath activated powder of breath #1 ea inhaler,sensor amoxicillin 875 mg-potassium 1 tab PO BID 5 days #10 t abs 08/12/24 08/14/24 Unknown Rx clavulanate 125 mg tablet apixaban 5 mg tablet (Eliquis) 5 mg PO BID 30 days #60 tabs 08/12/24 08/14/24 Unknown Rx bumetanide 1 mg tablet 1 mg PO DAILY 30 days #30 ta bs 08/12/24 08/14/24 Unknown Rx clopidogrel 75 mg tablet 75 mg PO DAILY 30 days #30 t abs 08/12/24 08/14/24 Unknown Rx losartan 50 mg tablet 25 mg (1/2 x 50 mg) PO DAILY 30 08/12/24 08/14/24 Unknown Rx days #15 tabs metoprolol succinate 50 mg 75 mg (1.5 x 50 mg) PO BID 30 days 08/12/24 08/14/24 Unknown Rx tablet,extended release 24 hr #90 tabs nitroglycerin 0.4 mg sublingual 0.4 mg sublingual Q5M PRN Chest 08/12/24 08/14/24 Unknown Rx tablet Pain 30 days #30 tabs potassium chloride 20 mEq 20 meq PO DAILY 30 days #60 tabs 08/12/24 08/14/24 Unknown Rx tablet,extended release(part/cryst) (Klor-Con M) rosuvastatin 40 mg tablet 40 mg PO BEDTIME 30 days #30 tabs 08/12/24 08/14/24 Unknown Rx Allergies Allergy/AdvReac Type Severity Reaction Status Date / Time No Known Allergies Allergy Verified 08/08/24 20:31 PFSH Acute 2 PFSH: Medical History (Updated 08/14/24 @ 16:49 by Jesse Thomas MD) Uses bilevel positive airway pressure (BPAP) ventilation at home Brain tumor Sleep apnea COPD (chronic obstructive pulmonary disease) Coronary artery disease Congestive heart failure Atrial fibrillation Surgical History (Updated 08/09/24 @ 01:49 by Fernando Barker MD) H/O craniotomy History of herniorrhaphy Hx of total knee arthroplasty Social History (Updated 08/09/24 @ 01:49 by Fernando Barker MD) Smoking and tobacco/nicotine status: current every day tobacco/nicotine user cigarettes Alcohol intake: former Additional social history: He wants full CODE STATUS Vitals/I&O/Wt Last Vital Signs Temp 98.2 F 08/14/24 14:24 Pulse 82 08/14/24 15:50 Resp 18 08/14/24 15:50 BP 169/119 08/14/24 15:50 Pulse Ox 94 08/14/24 15:50 O2 Del Method Nasal Cannula 08/14/24 15:50 O2 Flow Rate 2 08/14/24 15:50 Weight last 48 hrs Weight 113.398 kg Physical Exam 2 Narrative: General: No acute distress, AO x3 HEENT: PERRLA, pupils bilaterally equal and reactive Chest: Bilateral bronchial breath sounds all over lung mendes, coarse are present bilaterally right more than left CVS: S1-S2 irregularly irregular,, no murmurs, no tachycardia, no gallops, no rubs Abdomen: Soft, nontender, no organomegaly, bowel sounds present Neuro: No focal deficits, no facial deformity, AO x3, power 5/5 in all limbs Data 08/14/24 14:43 08/14/24 15:27 A&P Assessment and plan (1) Hypoxic respiratory failure: A combination of COPD exacerbation, congestive heart failure getting complicated by aspiration pneumonia. He does have history of obstructive sleep apnea on BiPAP which he has not been using recently as he did not bring his BiPAP while traveling from [place] to [place]. Check ABG. Chest x-ray showing right lower lobe consolidation. CTA done on previous admission negative for PE. Concern for mild worsening in consolidation. Will get CT chest. For supplementation keeping saturation over 90%. Patient will most likely need home O2 evaluation on discharge. (2) COPD (chronic obstructive pulmonary disease): Pulmicort twice daily, ipratropium, Xopenex every 6 hours. Solu-Medrol 40 mg every 8 hourly. (3) Aspiration pneumonia: Concern for aspiration on recent admission. Was recommended for aspiration precautions. Speech therapy. Dysphagia level 5 diet with moderately thickened fluids for now. Check sputum culture, MRSA swab. For now start on treatment for hospital-acquired pneumonia with IV vancomycin and Zosyn. If MRSA swab negative will discontinue vancomycin. (4) Congestive heart failure: proBNP elevated. Recent echocardiogram showed an EF of 65%, LVH without regional wall motion abnormality, mild pulmonary hypertension with RVSP of 40 to 45 mmHg, dilated LA, mild MR. IV Lasix 40 mg twice daily. Fluid restriction to less than 1500 cc. Strict input charting, daily weights. (5) Uses bilevel positive airway pressure (BPAP) ventilation at home: (6) NSTEMI (non-ST elevated myocardial infarction): On recent admission. Post PCI to OM1 and LCx. Less likely the culprit for now. Follow-up troponin level. Continue with Plavix, statin, metoprolol. (7) Atrial fibrillation: Telemetry. Continue with metoprolol at home dose. Continue Eliquis 5 mg twice daily. (8) Sleep apnea: BiPAP nightly and as needed. Plan Full code Protonix OPD prophylaxis Eliquis will be sufficient for DVT prophylaxis Dysphagia level 5 diet with moderately thickened fluids PDMP PDMP Reviewed: Not Reviewed Attestations 2 Medical Necessity Statement*: Admission for more than 2 midnights for management of hypoxic respiratory failure in setting of COPD exacerbation, aspiration pneumonia, congestive heart failure in a patient with recent history of non-ST elevation RI post PCI, obstructive sleep apnea usually on BiPAP currently noncompliant as patient is traveling from [place] Diagnoses Hypoxic respiratory failure J96.91 COPD (chronic obstructive pulmonary disease) J44.9 Aspiration pneumonia J69.0 Acute congestive heart failure, unspecified heart failure type I50.9 Heart failure type: unspecified Heart failure chronicity: acute Uses bilevel positive airway pressure (BPAP) ventilation at home Z99.89 NSTEMI (non-ST elevated myocardial infarction) I21.4 Atrial fibrillation, unspecified type I48.91 Atrial fibrillation type: unspecified Sleep apnea G47.30
--- NOTE | 2024-08-14 17:00 | PHA.VACGOAL ---
Vancomycin Goal - Goal Vancomycin Goal:: 15-20 mg/L Vancomycin Indication:: Pneumonia - Therapy Current therapy:: Pip/Tazo Day of therpy:: Day [1]of [] Actual body weight (kg): 113.398 kg - Data Labs: WBC 9.39 10^3/uL (3.29-11.43) 08/14/24 14:43 RBC 5.37 10^6/uL (3.85-5.65) 08/14/24 14:43 Hgb 13.90 g/dL (11.27-16.99) 08/14/24 14:43 Hct 46.5 % (37-53) 08/14/24 14:43 MCV 86.6 fl (82-101) 08/14/24 14:43 MCH 25.9 pg (27-33) L 08/14/24 14:43 MCHC 29.9 g/dL (30-55) L 08/14/24 14:43 RDW 17.0 % (12.1-15.1) H 08/14/24 14:43 Sodium 139 mmol/L (136-145) 08/14/24 15:27 Potassium 3.8 mmol/L (3.5-5.1) 08/14/24 15:27 Chloride 102 mmol/L (98-107) 08/14/24 15:27 Carbon Dioxide 27 mmol/L (22-29) 08/14/24 15:27 Anion Gap 13.8 (5-19) 08/14/24 15:27 BUN 23 mg/dL (8-23) 08/14/24 15:27 Creatinine 0.6 mg/dL (0.7-1.2) L 08/14/24 15:27 GFR Calculation Not Reportable 08/14/24 15:27 Treatment plan:: new consult Regimen:: New start vancomycin for Aspiration pneumonia. No prior vancomycin history found. No load dose ordered. Started on maintenance dose of 1500 mg q8h.
[2024-08-14 17:03] LABS: ABG PCO2 54.3 mmHg (35-45); Arterial Blood Gas Hematocrit 43.8 % (42-52); Base Excess ABG 7.2 mmol/L (-2.0-2.0); Blood Gas Allen Test Pos; Blood Gas Operator Identificat glc; Blood Gas Sample Site Radial, left; Blood Gas Sample Type Arterial; HCO3 ABG 33.7 mmol/L (22-26); Oxygen Device NC; PO2 ABG 72.7 mmHg (80.0-100.0); PO2 FiO2 Ratio Arterial Blood 259
[2024-08-14 17:09] LABS: Lactic Sepsis W/Reflex 0.9 mmol/L (0.5-2.2)
--- NOTE | 2024-08-14 17:10 | PM.CCNAC ---
Critical Care Event Note Patient found to have a systolic blood pressure of 200 mmHg. Complaining of difficulty in breathing and mild chest heaviness. He states he has not been taking his oral antihypertensive while being at home but thinks he has been taking his Plavix. He has not been using his BiPAP at home. Plan: Follow-up troponin levels. Start on nitro drip for high blood pressure. Titrate with goal blood pressure of less than 140/90 mmHg. Continue all antihypertensive as before. Add Imdur 30 mg oral daily. Admit to ICU. The high probability of a clinically significant, sudden or life threatening deterioration of the patient's [cardiac, pulmonary] system(s) required my full and direct attention, intervention and personal management. The critical care time is as shown. This time is in addition to time spent performing any reported procedures but includes the following: [x] Data and vital sign review and interpretation [x] Patient assessment, examination and intervention [x] Documentation [x] Medication orders and management Critical Care Time Code activated: No Critical Care Time (min): 80 Coding Level of Care Code Critical Care Other Coding Information Prolonged care (total time indicated above or notated here) (Hypertensive urgency with difficulty in breathing and chest pressures) This patient has a high probability of clinically significant, sudden or life threatening deterioration of the patient's (neurological/pulmonary/cardiac/renal/ID/endocrine) systems required my full, direct attention, the highest level of physician preparedness for urgent intervention and personal management. I managed/supervised life or organ supporting interventions that required frequent physician assessment. I devoted my full attention in the ICU to the direct care of this patient for the period of time indicated above. Time I spent with family or surrogate(s) is included only if the patient was incapable of providing necessary information or participating in decision making. This time includes the following services provided: Telemetry review nonMechanical Ventilation Hemodynamic interpretation, assessment and management Review and interpretation of CXR Review and interpretation of lab values Review and interpretation of microbiologic data and culture results Review of medications and administration Review and interpretation of Nutrition requirements and management Discussion of management with other consultants and services Clinical update to family members
--- NOTE | 2024-08-14 17:13 | CTR_ITS ---
PROCEDURE INFORMATION: Exam: CT Chest Without Contrast; Diagnostic Exam date and time: 08/14/2024 6:06 PM Age: 74 years old Clinical indication: Shortness of breath; Additional info: Copd/pna/chf TECHNIQUE: Imaging protocol: Diagnostic computed tomography of the chest without contrast. Radiation optimization: All CT scans at this facility use at least one of these dose optimization techniques: automated exposure control; mA and/or kV adjustment per patient size (includes targeted exams where dose is matched to clinical indication); or iterative reconstruction. COMPARISON: CT angio chest PE protcl [id number] 08/10/2024 3:51 PM RADIATION DOSE METRICS: Total DLP (mGy-cm): 751.71 FINDINGS: Lungs: Similar mild paraseptal emphysema with upper lobe predominance. Mildly increased right lower lobe consolidation and scattered ground-glass opacities in the right lower lobe. No new airspace disease. Stable 5 mm left upper lobe nodule. Pleural spaces: Unremarkable. No pneumothorax. No pleural effusion. Heart: Stable heart size. Mitral annular calcifications. No pericardial effusion. Coronary arteries: Multivessel coronary artery calcifications. Lymph nodes: Unremarkable. No enlarged lymph nodes. Vasculature: Similar dilated main pulmonary artery measuring up to 3.9 cm. Vascular patency not assessed without intravenous contrast. Stable dilated ascending thoracic aorta measuring 4.3 cm in caliber. Mild atherosclerotic aortic calcifications. Adrenal glands: Redemonstrated left adrenal thickening/nodule. Kidneys: Stable cysts in the upper pole of the left kidney. Bones/joints: [id number] degenerative changes of the visualized spine. Soft tissues: Symmetric bilateral gynecomastia. CT/CT chest [facility] [id number] IMPRESSION: 1. Slightly worsened right lower lobe consolidation and ground-glass opacities, concerning for infection. 2. Remainder stable. COMMENTS: The presence of pulmonary emphysema on CT is an independent risk factor for lung cancer. In the absence of a history or active diagnosis of lung cancer, it is recommended that this patient with emphysema be evaluated for enrollment in a low dose CT lung cancer screening program.
[2024-08-14 17:16] LABS: Procalcitonin 0.05 ng/mL (0-0.5); Thyroid Stimulating Hormone 3.71 uIU/mL (0.27-4.20)
[2024-08-14] MEDS: methylPREDNISolone sod succ 40 mg/mL INJ IVP ×2 (17:44→23:58)
[2024-08-14] MEDS: FUROsemide 10 mg/mL SDV 4mL 40 MG IVP (17:44)
[2024-08-14] MEDS: nitroglycerin drip 50 MG/250 ML PREMIX IV (17:52)
[2024-08-14 18:05] LABS: Troponin 5 2HR 56.73 ng/L (0-15); Troponin 5 2HR Delta 5.73 ABS# (0-10)
[2024-08-14 18:09] LABS: Iron 55 ug/dL (59-158)
[2024-08-14 18:11] LABS: Percent Saturation 19.5 % (20-50); Total Iron Binding Capacity 281 mcg/dl; Unsaturated Iron Binding 226 ug/dL (112-347)
[2024-08-14 18:24] LABS: Add Urine Microscopic? YES; Bacteria Urine None Seen /hpf; Bilirubin Urine Negative (Negative); Blood Urine 1+ (Negative); Glucose Urine UA Negative (Normal); Ketones Urine Negative (Negative); Leukocyte Esterase Urine Negative (Negative); Nitrate Urine Negative (Negative); Protein Urine 2+ (Negative); Specific Gravity, Urine 1.023 (1.005-1.030); Squamous Epithelial Cell Urine 0-5 /hpf (0-5); Urine Appearance Clear (CLEAR); Urine Color Yellow (Yellow); WBC Urine 0-5 /hpf (0-5)
[2024-08-14 19:15] LABS: Vitamin B12 542 pg/mL (232-1245)
[2024-08-14] MEDS: vancomycin 1,500 MG/300 ML PIGGYBACK 200 MG IV (19:48)
[2024-08-14] MEDS: metoprolol succinate ER (24 HR) 50 mg Tablet 75 MG PO (19:49)
[2024-08-14] MEDS: apixaban 5 mg Tablet PO (19:49)
[2024-08-14] MEDS: pantoprazole 40 mg SDV IVP (19:49)
[2024-08-14] MEDS: docusate sodium 100 mg Capsule PO (19:49)
[2024-08-14 20:05] LABS: Estmated Average Glucose 126
--- NOTE | 2024-08-14 20:37 | ECG_ITS ---
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 Measurements Intervals Teller Rate: 87 P: 0 OH: 0 QRS: 1 QRSD: 157 T: 41 QT: 429 QTc: 519 Interpretive Statements ATRIAL FIBRILLATION RIGHT BUNDLE BRANCH BLOCK [120+ ms QRS DURATION, UPRIGHT V1, 40+ ms S IN I/aVL/V4/V5/V6] Compared to ECG 08/14/2024 16:36:32 Right bundle-branch block now present Intraventricular conduction delay no longer present Electronically Signed On 08-15-2024 10:21:30 CDT by Rafa Leon M.D. [email or web address]
[2024-08-14] MEDS: ipratropium 0.5 mg/2.5 mL Neb INHALATION (21:23)
[2024-08-14] MEDS: levalbuterol 0.63 mg/3 mL Neb INHALATION (21:23)
[2024-08-14] MEDS: atorvastatin 40 mg Tablet 80 MG PO (21:24)
[2024-08-14] MEDS: tamsulosin 0.4 mg Capsule PO (21:24)
[2024-08-14] MEDS: budesonide 0.5 mg/2 mL Neb INHALATION (21:24)
[2024-08-14] MEDS: losartan 50 mg Tablet 25 MG PO (21:26)
[2024-08-14 21:41] LABS: Troponin 5 6HR 51.41 ng/L (0-15); Troponin 5 6HR Delta 0.41 ng/L (0-12)
[2024-08-14] MEDS: metoprolol tartrate 1 mg/1 mL SDV 5 mL 5 MG IVP (21:51)
[2024-08-14] MEDS: piperacillin-tazobactam 3.375 GM in sodium chloride 0.9% (plus) 50 ML IV (23:55)
[2024-08-15] VITALS (190 sets, daily range): BP systolic 114–191; BP diastolic 81–138; PULSE 70–127; RESP 12–39; TEMP 36.7–36.9; O2SAT 80–96; BMI 38.7
[2024-08-15] MEDS: losartan 50 mg Tablet PO ×2 (00:02→07:55)
[2024-08-15] MEDS: hyDRALAzine 20 mg/mL INJ 1 mL IVP (00:46)
[2024-08-15] MEDS: levalbuterol 0.63 mg/3 mL Neb INHALATION ×4 (02:15→19:52)
[2024-08-15] MEDS: ipratropium 0.5 mg/2.5 mL Neb INHALATION ×4 (02:15→19:52)
[2024-08-15] MEDS: vancomycin 1,500 MG/300 ML PIGGYBACK 200 MG IV ×3 (02:26→17:21)
--- NOTE | 2024-08-15 04:31 | PC.NURSE ---
Nitro drip paused due to a sudden drop in BP. Subsequent pressures have remained below parameters for administration.
[2024-08-15] MEDS: FUROsemide 10 mg/mL SDV 4mL 40 MG IVP ×2 (05:21→17:21)
[2024-08-15 05:29] LABS: Basophils % 0.1 %; Hematocrit 43.5 % (37-53); Lymphocytes # 0.8 10^3/uL (0.8-4.8); Lymphocytes % 10.6 %; Mean Corpuscular HGB Conc 29.9 g/dL (30-55); Mean Corpuscular Hemoglobin 26.3 pg (27-33); Mean Corpuscular Volume 88.1 fl (82-101); Mean Platelet Volume 10.2 fL (7.4-10.4); Monocytes # 0.1 10^3/uL (0.2-0.9); Monocytes % 1.6 %; Neutrophils # 6.92 10^3/uL (1.8-7.7); Neutrophils % 87.1 %; Nucleated Red Blood Cells % 0 %; Platelet Count 199 10^3/cmm (157-399); Red Blood Count 4.94 10^6/uL (3.85-5.65); Red Cell Distribution Width 16.6 % (12.1-15.1); White Blood Count 7.95 10^3/uL (3.29-11.43)
[2024-08-15 05:52] LABS: Alanine Aminotransferase 21 U/L (0-41); Albumin Level 3.6 g/dL (3.5-5.2); Alkaline Phosphatase 56 U/L (40-130); Anion Gap 16.7 (5-19); Aspartate Amino Transferase 15 U/L (0-40); Blood Urea Nitrogen 22 mg/dL (8-23); Calcium 8.7 mg/dL (8.5-10.5); Carbon Dioxide 27 mmol/L (22-29); Chloride 102 mmol/L (98-107); Creatinine Clr Calc Pharmacy 104.7732; Glucose 149 mg/dL (65-115); Magnesium 1.8 mg/dL (1.7-2.3); Osmolality Calculated 300 mOsm/kg (285-295); Phosphorus 3.7 mg/dL (2.5-4.5); Potassium 3.7 mmol/L (3.5-5.1); Sodium 142 mmol/L (136-145); Total Bilirubin 0.4 mg/dL (0.15-1.2); Total Protein 6.6 g/dL (6.6-8.7)
[2024-08-15 05:53] LABS: Chol HDL Ratio 3.13 mg/dL (1.0-5.00); Cholesterol 122 mg/dL (0-200); HDL Cholesterol 39 mg/dL (60-100); LDL Cholesterol Calculated 71 mg/dL (50-129); LDL HDL Ratio 1.82 RATIO (0.00-3.22); Triglycerides 60 mg/dL (0-150)
[2024-08-15 05:57] LABS: Procalcitonin 0.03 ng/mL (0-0.5)
[2024-08-15] MEDS: piperacillin-tazobactam 3.375 GM in sodium chloride 0.9% (plus) 50 ML IV ×3 (06:03→22:39)
[2024-08-15 06:06] LABS: Folate Level 15.1 ng/mL (4.5-32.2)
[2024-08-15] MEDS: methylPREDNISolone sod succ 40 mg/mL INJ IVP ×2 (07:53→17:21)
[2024-08-15] MEDS: citalopram 20 mg Tablet PO (07:53)
[2024-08-15] MEDS: isosorbide mononitrate ER 30 mg Tablet PO (07:54)
[2024-08-15] MEDS: docusate sodium 100 mg Capsule PO ×2 (07:54→17:23)
[2024-08-15] MEDS: apixaban 5 mg Tablet PO ×2 (07:54→17:23)
[2024-08-15] MEDS: clopidogrel 75 mg Tablet PO (07:54)
[2024-08-15] MEDS: metoprolol succinate ER (24 HR) 50 mg Tablet 75 MG PO ×2 (07:54→17:23)
[2024-08-15] MEDS: budesonide 0.5 mg/2 mL Neb INHALATION ×2 (08:56→19:52)
--- NOTE | 2024-08-15 13:28 | PM.PN ---
Subjective Subjective: BP elevated denies chest pain but states he had some previously wants to quit smoking Vitals/I&O/Wt Last Vital Signs Temp 98.1 F 08/15/24 07:56 Pulse 86 08/15/24 11:55 Resp 21 H 08/15/24 11:55 BP 140/86 08/15/24 11:55 Pulse Ox 93 08/15/24 11:55 O2 Del Method Nasal Cannula 08/15/24 11:55 O2 Flow Rate 2 08/15/24 11:55 08/14/24 08/15/24 08/15/24 22:59 06:59 14:59 Intake Total 559.625 / 559.625 534.35 / 6557.188 3404 / 1070 Output Total 525 / 525 325 / 850 500 / 500 Balance 34.625 / 34.625 209.35 / 243.975 570 / 570 Weight last 48 hrs Weight 262 lb 5.601 oz Weight 262 lb 5.601 oz Weight 262 lb 9 oz Weight 250 lb Physical Exam Narrative: General: No acute distress, AO x3 HEENT: PERRLA, pupils bilaterally equal and reactive Chest: Bilateral bronchial breath sounds all over lung mendes, coarse are present bilaterally right more than left CVS: S1-S2 irregularly irregular,, no murmurs, no tachycardia, no gallops, no rubs Abdomen: Soft, nontender, no organomegaly, bowel sounds present Neuro: No focal deficits, no facial deformity, AO x3, power 5/5 in all limbs Data 08/15/24 05:15 08/15/24 05:15 Micro: Microbiology 08/14/24 17:02 Gram Stain - Final Sputum - Expectorated Sputum Sputum Culture - Preliminary A&P Assessment and plan (1) COPD (chronic obstructive pulmonary disease): (2) Hypertensive urgency: (3) Coronary artery disease: Plan (1) Hypoxic respiratory failure: --A combination of COPD exacerbation, congestive heart failure getting complicated by aspiration pneumonia. --monitor blood abg, labs Chest x-ray showing right lower lobe consolidation. CTA done on previous admission negative for PE. continue abx tation keeping saturation over 90%. Patient will most likely need home O2 evaluation on discharge. (2) COPD (chronic obstructive pulmonary disease): Pulmicort twice daily, ipratropium, Xopenex every 6 hours. Solu-Medrol 40 mg every 8 hourly. (3) Aspiration pneumonia: Concern for aspiration on recent admission. Was recommended for aspiration precautions. Speech therapy. Dysphagia level 5 diet with moderately thickened fluids for now. Check sputum culture, MRSA swab. For now start on treatment for hospital-acquired pneumonia with IV vancomycin and Zosyn. (4) Congestive heart failure: proBNP elevated. Recent echocardiogram showed an EF of 65%, LVH without regional wall motion abnormality, mild pulmonary hypertension with RVSP of 40 to 45 mmHg, dilated LA, mild MR. IV Lasix 40 mg twice daily. Fluid restriction to less than 1500 cc. Strict input charting, daily weights. (5) Uses bilevel positive airway pressure (BPAP) ventilation at home: (6) NSTEMI (non-ST elevated myocardial infarction): On recent admission. Post PCI to OM1 and LCx. Less likely the culprit for now. Follow-up troponin level. Continue with Plavix, statin, metoprolol. will consult Cardiology (7) Atrial fibrillation: Telemetry. Continue with metoprolol at home dose. Continue Eliquis 5 mg twice daily. (8) Sleep apnea: BiPAP nightly and as needed. PDMP PDMP Reviewed: Not Reviewed Attestations Medical Necessity Statement*: chest pain Coding Level of Care Code Acute Code for [facility] Diagnoses COPD (chronic obstructive pulmonary disease) J44.9 Hypertensive urgency I16.0 Coronary artery disease I25.10
--- NOTE | 2024-08-15 14:49 | PC.NURSE ---
son was informed by patient that she is going to [facility].
--- NOTE | 2024-08-15 16:56 | P.CONIM_ITS ---
Providers/Reason For Consult 2 Consulting Physician/Specialty*: DOMENICO Millan MD/cardiology Reason for Consult*: Patient with chest pain and shortness of breath. Recent coronary angiogram and PCI Requesting Physician: Dr. Cleveland Attending Physician: Love Cleveland MD History of Present Illness History of Present Illness Ghanshyam Conway is a 74 year old male with a history of atherosclerotic heart diseas, high blood pressure, dyslipidemia, atrial fibrillation, COPD, obstructive sleep apnea, is admitted to hospital through the emergency room, where he presented with complaint of worsening shortness of breath. He had a recent hospital admission for more or less similar symptoms. He was found to have features of a non-ST elevation myocardial infarction. Subsequent cardiac catheterization revealed a high-grade lesion in the obtuse marginal 1 artery and also in the distal circumflex artery. He underwent PCI of these lesions. He was discharged home, 2 days ago, on the second. During his hospital stay last week, he went into acute heart failure following the coronary intervention. He was treated with IV diuretics. There was a concern about aspiration pneumonia. Even though if this was not conclusive, he was treated with empiric antibiotic. He was discharged home on antibiotics as well. Patient is a very poor historian. According to him, the main reason for his coming back to the hospital was the shortness of breath. He also had some chest discomfort when the breathing gets worse. No palpitations, unusual dizziness or syncopal episodes. He denies any fever or chills. The CT of the chest from yesterday revealed consolidation findings of the right lower lobe. Patient currently is on empiric antibiotic. The coronary angiogram on the of last month revealed a high-grade lesion in the first obtuse marginal branch of the circumflex artery and also in the distal circumflex artery. He had a mild diffuse disease in the other vessels. He has a history of obstructive sleep apnea and is using BiPAP at home. He has been taking the medications as prescribed. Denies any fever or chills. No significant cough Review of Systems 2 Narrative: CONSTITUTIONAL: No fever or chills. EYES: No blurring of vision or other visual disturbances lately. ENT: No hoarseness of voice, auditory disturbances or sore throat. CARDIOVASCULAR: As mentioned above. RESPIRATORY: COPD/obstructive sleep apnea GASTROINTESTINAL: No hematemesis or melena. GENITOURINARY: No dysuria or hematuria. INTEGUMENTARY: No skin rashes or history of skin cancer. NEURO: No transient ischemic attacks or amaurosis. PSYCHIATRIC: No history of psychosis or major depression. HEMATOLOGIC: No bleeding disorders or significant anemia. ENDOCRINE: No history of polyuria or polydipsia. MUSCULOSKELETAL: No recent joint pain or swelling. ALLERGY/IMMUNOLOGY: As mentioned above. Medications/Allergies Home Medications ?Medication ?Instructions ?Recorded ?Confirmed ?Last Taken ?Type citalopram 20 mg tablet 20 mg PO DAILY 08/09/24 0508/05 2 Weeks Ago History ~07/26/24 cyclobenzaprine 10 mg tablet 10 mg PO TID PRN muscle s pasms 08/09/24 08/14/24 Unknown History fluticasone fur. 100 mcg-umeclid 1 inh inhalation PRATIBHA Y 08/09/24 08/14/24 08/08/24 History 62.5 mcg-vilant 25 mcg inhalat.powder (Trelegy Ellipta) tamsulosin 0.4 mg capsule 0.4 mg PO BEDTIME 08/09/24 0 08/14/24 2 Weeks Ago History ~07/26/24 albuterol sulfate 90 mcg/actuation 1 inh inhalation Q6 H PRN shortness 08/12/24 08/14/24 Unknown Rx breath activated powder of breath #1 ea inhaler,sensor amoxicillin 875 mg-potassium 1 tab PO BID 5 days #10 t abs 08/12/24 08/14/24 Unknown Rx clavulanate 125 mg tablet apixaban 5 mg tablet (Eliquis) 5 mg PO BID 30 days #60 tabs 08/12/24 08/14/24 Unknown Rx bumetanide 1 mg tablet 1 mg PO DAILY 30 days #30 ta bs 08/12/24 08/14/24 Unknown Rx clopidogrel 75 mg tablet 75 mg PO DAILY 30 days #30 t abs 08/12/24 08/14/24 Unknown Rx losartan 50 mg tablet 25 mg (1/2 x 50 mg) PO DAILY 30 08/12/24 08/14/24 Unknown Rx days #15 tabs metoprolol succinate 50 mg 75 mg (1.5 x 50 mg) PO BID 30 days 08/12/24 08/14/24 Unknown Rx tablet,extended release 24 hr #90 tabs nitroglycerin 0.4 mg sublingual 0.4 mg sublingual Q5M PRN Chest 08/12/24 08/14/24 Unknown Rx tablet Pain 30 days #30 tabs potassium chloride 20 mEq 20 meq PO DAILY 30 days #60 tabs 08/12/24 08/14/24 Unknown Rx tablet,extended release(part/cryst) (Klor-Con M) rosuvastatin 40 mg tablet 40 mg PO BEDTIME 30 days #30 tabs 08/12/24 08/14/24 Unknown Rx Allergies Allergy/AdvReac Type Severity Reaction Status Date / Time No Known Allergies Allergy Verified 08/08/24 20:31 Current Medications Generic Name Dose Route Start Last Admin Trade Name Freq PRN Reason Stop Dose Admin Apixaban 5 mg 08/14/24 18:17 08/15/24 07:54 Apixaban 5 Mg Tablet PO 5 mg BID ESTIVEN Administration Atorvastatin Calcium 80 mg 08/14/24 21:00 08/14/24 21:24 Atorvastatin 40 Mg Tablet PO 80 mg BEDTIME ESTIVEN Administration Budesonide 0.5 mg 08/14/24 18:17 08/15/24 08:56 Budesonide 0.5 Mg/2 Ml Neb INHALATION 0.5 mg BID ESTIVEN Administration Citalopram Hydrobromide 20 mg 08/15/24 09:00 08/15/24 07:53 Citalopram 20 Mg Tablet PO 20 mg DAILY ESTIVEN Administration Clopidogrel Bisulfate 75 mg 08/15/24 09:00 08/15/24 07:54 Clopidogrel 75 Mg Tablet PO 75 mg DAILY ESTIVEN Administration Docusate Sodium 100 mg 08/14/24 18:17 08/15/24 07:54 Docusate Sodium 100 Mg Capsule PO 100 mg BID ESTIVEN Administration Furosemide 40 mg 08/14/24 16:45 08/15/24 05:21 Furosemide 10 Mg/Ml Sdv 4ml IVP 40 mg Q12H ESTIVEN Administration Hydralazine HCl 20 mg 08/14/24 23:20 08/15/24 00:46 Hydralazine 20 Mg/Ml Inj 1 Ml IVP 20 mg Q4H PRN Administration sbp over 150 Piperacillin Sod/Tazobactam 50 mls @ 12.5 mls/hr 08/14/24 23:00 08/15/24 14:36 Sod 3.375 gm/ Sodium Chloride IV 12.5 mls/hr Q8H ESTIVEN Administration Vancomycin HCl 1,500 mg in 300 mls @ 200 mls/hr 08/14/24 17:30 08/15/24 11:56 Vancocin IV Infused Q8H ESTIVEN Infusion Nitroglycerin/Dextrose 50 mg in 250 mls @ 0 mls/hr 08/14/24 17:15 08/15/24 05:00 Nitroglycerin Drip IV 5 mcg/min .Q0M SETIVEN 1.5 mls/hr Protocol Titration Per Protocol Ipratropium [place] 0.5 mg 08/14/24 16:45 08/15/24 13:03 Ipratropium 0.5 Mg/2.5 Ml Neb INHALATION 0.5 mg Q6H.RESP ESTIVEN Administration Isosorbide Mononitrate 30 mg 08/15/24 09:00 08/15/24 07:54 Isosorbide Mononitrate Er 30 Mg Tablet PO 30 mg DAILY ESTIVEN Administration Levalbuterol HCl 0.63 mg 08/14/24 16:45 08/15/24 13:03 Levalbuterol 0.63 Mg/3 Ml Neb INHALATION 0.63 mg Q6H.RESP ESTIVEN Administration Losartan Potassium 50 mg 08/14/24 23:30 08/15/24 07:55 Losartan 50 Mg Tablet PO 50 mg DAILY ESTIVEN Administration Methylprednisolone Sodium Succinate 40 mg 08/14/24 16:45 08/15/24 07:53 Methylprednisolone Sod Succ 40 Mg/Ml Inj IVP 40 mg Q8H ESTIVEN Administration Metoprolol Succinate 75 mg 08/14/24 18:17 08/15/24 07:54 Metoprolol Succinate Er (24 Hr) 50 Mg Tablet PO 75 mg BID ESTIVEN Administration Pantoprazole Sodium 40 mg 08/14/24 18:17 08/14/24 19:49 Pantoprazole 40 Mg Sdv IVP 40 mg Q24H ESTIVEN Administration Tamsulosin HCl 0.4 mg 08/14/24 21:00 08/14/24 21:24 Tamsulosin 0.4 Mg Capsule PO 0.4 mg BEDTIME ESTIVEN Administration PFSH Acute 2 PFSH: Medical History Uses bilevel positive airway pressure (BPAP) ventilation at home Brain tumor Sleep apnea COPD (chronic obstructive pulmonary disease) Coronary artery disease Congestive heart failure Atrial fibrillation Surgical History H/O craniotomy History of herniorrhaphy Hx of total knee arthroplasty Social History Smoking and tobacco/nicotine status: current every day tobacco/nicotine user cigarettes Alcohol intake: former Additional social history: He wants full CODE STATUS Vitals/I&O/Wt Last Vital Signs Temp 98.1 F 08/15/24 07:56 Pulse 96 08/15/24 15:00 Resp 20 H 08/15/24 15:00 BP 155/91 08/15/24 15:00 Pulse Ox 93 08/15/24 15:00 O2 Del Method Nasal Cannula 08/15/24 11:55 O2 Flow Rate 2 08/15/24 11:55 08/15/24 08/15/24 08/15/24 06:59 14:59 22:59 Intake Total 534.35 / 6620.583 4686 / 1070 Output Total 325 / 850 800 / 800 Balance 209.35 / 243.975 270 / 270 Weight last 48 hrs Weight 262 lb 5.601 oz Weight 262 lb 5.601 oz Weight 262 lb 9 oz Weight 250 lb Physical Exam 2 Narrative: GENERAL: The patient is alert and oriented times three. Not in any acute distress. Obese HEENT: No significant pallor, icterus or lymphadenopathy.Oral cavity: There are no mucous membrane lesions. NECK: Trachea appears to be central. No masses noted. No JVD or thyromegaly appreciated. RESPIRATORY: Chest is symmetrical. No intercostals muscle retraction or any accessory muscle activation. There is no chest wall tenderness. Breath sounds are heard bilaterally. Diminished intensity of breath sounds in the bases. BREASTS: Deferred. HEART: The heart sounds are normal. No S3 or S4. [No significant murmurs] []. No pericardial rub ABDOMEN: No vessel pulsations or distention. No tenderness. No organomegaly appreciated. Bowel sounds are normally heard. : Deferred. [] RECTAL: Deferred. [] LYMPHATIC: No lymphadenopathy noted in the neck. EXTREMITIES: 1-2+ edema both lower extremities. MUSCULOSKELETAL: No acute joint deformities or swelling SKIN: There are no significant rashes or ecchymosis NEUROPSYCHIATRIC: The patient is alert and oriented x3. Appears to be in a good mood. No tremors or rigidity noted. [] Data 08/15/24 05:15 08/15/24 05:15 Other Labs: Laboratory Last Values WBC 7.95 10^3/uL (3.29-11.43) 08/15/24 05:15 RBC 4.94 10^6/uL (3.85-5.65) 08/15/24 05:15 Hgb 13.00 g/dL (11.27-16.99) 08/15/24 05:15 Hct 43.5 % (37-53) 08/15/24 05:15 MCV 88.1 fl (82-101) 08/15/24 05:15 MCH 26.3 pg (27-33) L 08/15/24 05:15 MCHC 29.9 g/dL (30-55) L 08/15/24 05:15 RDW 16.6 % (12.1-15.1) H 08/15/24 05:15 Plt Count 199 10^3/cmm (157-399) 08/15/24 05:15 MPV 10.2 fL (7.4-10.4) 08/15/24 05:15 Neut % (Auto) 87.1 % 08/15/24 05:15 Lymph % (Auto) 10.6 % 08/15/24 05:15 [place] % (Auto) 1.6 % 08/15/24 05:15 Eos % (Auto) 0.0 % 08/15/24 05:15 Baso % (Auto) 0.1 % 08/15/24 05:15 Neut # (Auto) 6.92 10^3/uL (1.8-7.7) 08/15/24 05:15 Lymph # (Auto) 0.8 10^3/uL (0.8-4.8) 08/15/24 05:15 [place] # (Auto) 0.1 10^3/uL (0.2-0.9) L 08/15/24 05:15 Eos # (Auto) 0.0 10^3/uL (0.0-0.8) 08/15/24 05:15 Baso # (Auto) 0.0 10^3/uL (0.0-0.1) 08/15/24 05:15 Nucleated RBC % (auto) 0 % 08/15/24 05:15 Nucleated RBCs # 0.0 /100WBC 08/15/24 05:15 Specimen Type Arterial 08/14/24 16:51 Sample Site Radial, left 08/14/24 16:51 ABG pH 7.40 (7.35-7.45) 08/14/24 16:51 ABG pCO2 54.3 mmHg (35-45) H 08/14/24 16:51 ABG pO2 72.7 mmHg (80.0-100.0) L 08/14/24 16:51 ABG PO2/FiO2 Ratio 259 08/14/24 16:51 ABG HCO3 33.7 mmol/L (22-26) H 08/14/24 16:51 ABG Base Excess 7.2 mmol/L (-2.0-2.0) H 08/14/24 16:51 Rogers Test Pos 08/14/24 16:51 Hematocrit 43.8 % (42-52) 08/14/24 16:51 O2 Delivery Device Nc 08/14/24 16:51 O2 Liters/Min 2.0 % 08/14/24 16:51 FiO2 28.0 % 08/14/24 16:51 Director Of Operations ID glc 08/14/24 16:51 Sodium 142 mmol/L (136-145) 08/15/24 05:15 Potassium 3.7 mmol/L (3.5-5.1) 08/15/24 05:15 Chloride 102 mmol/L (98-107) 08/15/24 05:15 Carbon Dioxide 27 mmol/L (22-29) 08/15/24 05:15 Anion Gap 16.7 (5-19) 08/15/24 05:15 BUN 22 mg/dL (8-23) 08/15/24 05:15 Creatinine 0.7 mg/dL (0.7-1.2) 08/15/24 05:15 GFR Calculation Not Reportable 08/15/24 05:15 Glucose 149 mg/dL (65-115) H 08/15/24 05:15 Estimat Average Glucose 126 08/14/24 14:43 Hemoglobin A1c 6.0 % (4.0-6.0) 08/14/24 14:43 Calculated Osmolality 300 mOsm/kg (285-295) H 08/15/24 05:15 Lactic Acid 0.9 mmol/L (0.5-2.2) 08/14/24 15:27 Calcium 8.7 mg/dL (8.5-10.5) 08/15/24 05:15 Phosphorus 3.7 mg/dL (2.5-4.5) 08/15/24 05:15 Magnesium 1.8 mg/dL (1.7-2.3) 08/15/24 05:15 Iron 55 ug/dL (59-158) L 08/14/24 17:39 TIBC 281 mcg/dl 08/14/24 17:39 % Saturation 19.5 % (20-50) L 08/14/24 17:39 Unsat Iron Binding 226 ug/dL (112-347) 08/14/24 17:39 Total Bilirubin 0.4 mg/dL (0.15-1.2) 08/15/24 05:15 AST 15 U/L (0-40) 08/15/24 05:15 ALT 21 U/L (0-41) 08/15/24 05:15 Alkaline Phosphatase 56 U/L (40-130) 08/15/24 05:15 Troponin T Baseline 51 ng/L (0-15) H 08/14/24 15:27 Troponin T 120 Minute 56.73 ng/L (0-15) H 08/14/24 17:39 Delta Troponin T 5.73 ABS# (0-10) 08/14/24 17:39 Troponin T Hi Sens 6Hr 51.41 ng/L (0-15) H 08/14/24 21:06 Troponin T Hi Sens 6Hr Delta 0.41 ng/L (0-12) 08/14/24 21:06 NT-Pro-B Natriuret Pep 7067 pg/mL (0-125) H 08/14/24 15:27 Total Protein 6.6 g/dL (6.6-8.7) 08/15/24 05:15 Albumin 3.6 g/dL (3.5-5.2) 08/15/24 05:15 Globulin 3.0 g/dL (1.3-4.6) 08/15/24 05:15 Triglycerides 60 mg/dL (0-150) 08/15/24 05:15 Cholesterol 122 mg/dL (0-200) 08/15/24 05:15 LDL Cholesterol, Calc 71 mg/dL (50-129) 08/15/24 05:15 HDL Cholesterol 39 mg/dL (60-100) L 08/15/24 05:15 LDL/HDL Ratio 1.82 RATIO (0.00-3.22) 08/15/24 05:15 Cholesterol/HDL Ratio 3.13 mg/dL (1.0-5.00) 08/15/24 05:15 Vitamin B12 542 pg/mL (232-1245) 08/14/24 17:27 Folate 15.1 ng/mL (4.5-32.2) 08/15/24 05:15 Procalcitonin 0.03 ng/mL (0-0.5) 08/15/24 05:15 TSH 3.71 uIU/mL (0.27-4.20) 08/14/24 15:27 Urine Color Yellow (Yellow) 08/14/24 17:41 Urine Appearance Clear (CLEAR) 08/14/24 17:41 Urine pH 6.0 (5-7) 08/14/24 17:41 Ur Specific [place] 1.023 (1.005-1.030) 08/14/24 17:41 Urine Protein 2+ (Negative) A 08/14/24 17:41 Urine Glucose (UA) Negative (Normal) 08/14/24 17:41 Urine Ketones Negative (Negative) 08/14/24 17:41 Urine Blood 1+ (Negative) A 08/14/24 17:41 Urine Nitrate Negative (Negative) 08/14/24 17:41 Urine Bilirubin Negative (Negative) 08/14/24 17:41 Urine Urobilinogen 1.0 mg/dL (Negative) 08/14/24 17:41 Ur Leukocyte Esterase Negative (Negative) 08/14/24 17:41 Urine RBC 6-10 /hpf (0-2) 08/14/24 17:41 Urine WBC 0-5 /hpf (0-5) 08/14/24 17:41 Ur Squamous Epith Cells 0-5 /hpf (0-5) 08/14/24 17:41 Amorphous Sediment Not Reportable 08/14/24 17:41 Urine Bacteria None seen /hpf (NONE) 08/14/24 17:41 Hyaline Casts 0.40 /lpf 08/14/24 17:41 Micro: Microbiology 08/14/24 17:02 Gram Stain - Final Sputum - Expectorated Sputum Sputum Culture - Preliminary EKG 1: My Interpretation: Atrial fibrillation with a controlled ventricular response rate. Right bundle branch block. Some nonspecific ST-T changes. Other data: CT of the chest 1. Slightly worsened right lower lobe consolidation and ground-glass opacities, concerning for infection. 2. Remainder stable. Echocardiogram ordered 08/09/2024 LV systolic function is normal with EF of 65-70% Severe left ventricular hypertrophy Left atrial dilation Mild mitral regurgitation Mild tricuspid regurgitation Mild pulmonary hypertension Mild ascending aorta dilation. No comparison studies are available. A&P Assessment and plan (1) Congestive heart failure: Patient seems to have intermittent diastolic heart failure. Pneumonia/COPD exacerbation/uncontrolled blood pressure are contributing factors. May be carefully treated with the diuretics and other symptomatic measures. The diastolic blood pressure was in the 150s at the time of admission. Blood pressure seems to be getting under control. (2) Atrial fibrillation: Patient is on long-term oral anticoagulation. This may be continued. He seems to be in irregular rhythm at this time. (3) Hypertensive urgency: The diastolic blood pressure was in the 150s. Patient is on IV nitro. This may be tapered off. The antihypertensive medications need to be optimized. (4) COPD (chronic obstructive pulmonary disease): The patient may continue on the current management. The heart failure, pneumonia, etc. are contributing factors for the COPD exacerbation. (5) Dyslipidemia: May continue on the current management. (6) NSTEMI (non-ST elevated myocardial infarction): The patient may be continued on the Plavix, aspirin and the other current medications. (7) Atherosclerotic heart disease of [place] coronary artery with other forms of angina pectoris: Patient status post PCI of the circumflex artery and the first obtuse marginal artery. May hold off on any specific investigations at this point. Plan Try to optimize the antihypertensive medications. Treat the diastolic heart failure with the diuretics. Appropriate management of the pneumonia as per the primary. May consider doing a Myocardial perfusion imaging after treating the above conditions appropriately. Based on the clinical progress on the results of the above, further recommendations will be made. Thank you for the opportunity to evaluate this patient and make these recommendations PDMP PDMP Reviewed: Not Reviewed Coding Level of Care Code Acute Code for [facility] Fwd Diagnoses Acute congestive heart failure, unspecified heart failure type I50.9 Heart failure type: unspecified Heart failure chronicity: acute Atrial fibrillation, unspecified type I48.91 Atrial fibrillation type: unspecified Hypertensive urgency I16.0 COPD (chronic obstructive pulmonary disease) J44.9 Dyslipidemia E78.5 NSTEMI (non-ST elevated myocardial infarction) I21.4 Atherosclerotic heart disease of [place] coronary artery with other forms of angina pectoris I25.118
[2024-08-15] MEDS: pantoprazole 40 mg SDV IVP (17:23)
[2024-08-15 17:30] LABS: Vancomycin Trough 26.3 ug/mL (10-15)
[2024-08-15] MEDS: atorvastatin 40 mg Tablet 80 MG PO (21:03)
[2024-08-15] MEDS: tamsulosin 0.4 mg Capsule PO (21:03)
[2024-08-16] VITALS (52 sets, daily range): BP systolic 118–187; BP diastolic 81–148; PULSE 84–123; RESP 14–37; TEMP 36.8; O2SAT 87–97
[2024-08-16] MEDS: methylPREDNISolone sod succ 40 mg/mL INJ IVP (01:42)
[2024-08-16] MEDS: levalbuterol 0.63 mg/3 mL Neb INHALATION (02:22)
[2024-08-16] MEDS: ipratropium 0.5 mg/2.5 mL Neb INHALATION (02:22)
--- NOTE | 2024-08-16 03:51 | PC.NURSE ---
Provider notified of patients episode of vtach on cardiac captured on cardiac monitoring. Patient was asymptomatic at that time. Provider placed orders for IV mag and PO potassium replacement. Upon entering patients room to administer medications, the patient was found standing at his bedside attempting to use his urinal. Patients blood pressure had recently cycled and was elevated. Patient turned and grabbed his head and I assisted him in turning around and sit on his bed. After sitting the patient down on his bed, I asked him if he knew his name, date of , and if he knew where he was at. He answered the questions appropriately, but his responses were much slower than normal, and he appeared to struggle to find his words. Patient had no facial drooping, strength equal on both sides, but he became very agitated and began refusing all medications. Charge nurse sat with patient and monitored him while provider was notified of patients condition. Provider asked if patient had received any Lorazepam, or would, to which I responded he had not and was refusing to keep his blood pressure cuff on. Provider instructed me to ask the patient if he wanted to see the provider, if he would be willing to go to CT for a scan, or if he would take any medications. Upon entering the patients room again the charge nurse was still present and patient continued to refuse to any care, or medications. Patient repeatedly told staff he was fine, just tired and needed to sleep and be left alone. Repeated attempts to educate patient throughout this interaction were made by many staff members. Provider notified again of patients refusal to have any testing, receive any medication, or wear medical monitoring equipment. No orders received from provider at that time.
--- NOTE | 2024-08-16 04:29 | PC.NURSE ---
Attempted to get patient to put on medical monitoring equipment. Patient refused after numerous attempts to educate patient on importance of wearing equipment.
--- NOTE | 2024-08-16 05:03 | PC.NURSE ---
Patient has now removed all medical monitoring equipment, attempts to educate and redirect unsuccessful. Patient refusing all cares currently.
--- NOTE | 2024-08-16 05:12 | PC.NURSE ---
Patient has now removed IV. IV catheter found in the floor and is intact. Attempts to provide care refused by patient. Provider updated.
--- NOTE | 2024-08-16 05:59 | PC.NURSE ---
Patient up ambulating in room looking for his shirt. Patient had removed IV from left AC and oxygen. Provider notified and came to talk to patient. Patient refused to take any medication or let staff assess vital signs. He told provider he was waiting on his son to come pick him up. Patient currently sitting in room watching tv.
--- NOTE | 2024-08-16 06:04 | P.PN_ITS ---
Subjective 2 Subjective: 74-year-old man from [place] was admitted by me 08/09/2024. He had not brought his BiPAP because his son does not have power and he stopped taking his meds because he was feeling poorly. Patient became volume overloaded. Patient was admitted for congestive heart failure for diuresis and BiPAP. Patient was found to have NSTEMI and had a's stent to his first obtuse marginal and 2 in his distal left circumflex. He was discharged on Eliquis, aspirin, Plavix, Toprol and Augmentin for pneumonia he represented 2 days later on 08/14/2024 with hypoxic respiratory failure and COPD exacerbation. Last night he had headache but refused treatment he did not want to speak to physician but wanted to be left alone. This morning he wanted to leave and I went down to evaluate him. Patient told RNs that he had been here twice to the hospital because his family was concerned that he could not breathe. He states he is from [place] and his brother is coming from [place] to bring him money so he can leave the hospital. He states his son is coming in today. Patient states he is not trying to leave at the moment but he does not want to have any more treatment because his legs look good and he feels better than he has. We tried to reason with him regarding additional treatment for heart failure but he would not listen. He is somewhat boisterous but not overtly combative. He is insistent that he will sign that it was his decision not to take any medications. Vitals/I&O/Wt Last Vital Signs Temp 98.2 F 08/16/24 00:00 Pulse 122 H 08/16/24 04:30 Resp 17 08/16/24 04:30 BP 187/130 08/16/24 04:00 Pulse Ox 92 08/16/24 04:15 O2 Del Method Nasal Cannula 08/16/24 02:00 O2 Flow Rate 2 08/16/24 02:00 08/15/24 08/15/24 08/16/24 14:59 22:59 06:59 Intake Total 1070 / 1070 890 / 1960 290 / 2250 Output Total 800 / 800 600 / 1400 125 / 1525 Balance 270 / 270 290 / 560 165 / 725 Weight last 48 hrs Weight 119 kg Weight 119 kg Weight 119.096 kg Weight 113.398 kg Physical Exam 2 Narrative: General Well-developed well-nourished obese male in no acute cardiopulmonary distress. Speech is mildly pressured. He is moving all extremities symmetrically. Patient declines physical exam and states that he wants to be left alone until he can leave. He knows that he is in the hospital but does not know the town. He states that his [place] but he does not know which town in [place] that is patient states that he has loose recollection of me seeing him in the ED MD Data 08/15/24 05:15 08/15/24 05:15 Micro: Microbiology 08/14/24 17:02 Gram Stain - Final Sputum - Expectorated Sputum Sputum Culture - Preliminary A&P Assessment and plan (1) Noncompliance: Patient at this time has pulled his IVs and is refusing treatment. He is refusing to be examined or reasoned with but is not acutely leaving the hospital. I gather there is a measure of sundowning here but he is not disoriented or dangerous to the point that I think it is appropriate to restrain the patient or administer IM medication. (2) Aspiration pneumonia: Has been on steroids and Zosyn and would likely need additional time with oral medication if he were to be discharged (3) Sleep apnea: Patient needs to continue on BiPAP (4) Congestive heart failure: Patient needs to continue on diuretics (5) Coronary artery disease: It is very important that the patient take aspirin Plavix and Eliquis for his stents and A-fib (6) Atrial fibrillation: Needs to be on his Toprol and Eliquis Plan I do not think the patient should be physically restrained or be given IM medication. In view of his willingness to stay here until family comes later in the day I hope that his son will be helped fall and reasoning with the patient. PDMP PDMP Reviewed: Not Reviewed Attestations 2 Medical Necessity Statement*: patient requires additional midnights in the hospital but is unwilling to stay. Because he is not acutely in danger will monitor and defer to day hospitalist and patient's son to see what can be done. Coding Level of Care Code Acute Code for Chg Fwd Diagnoses Noncompliance Z91.199 Aspiration pneumonia J69.0 Sleep apnea G47.30 Acute congestive heart failure, unspecified heart failure type I50.9 Heart failure type: unspecified Heart failure chronicity: acute Coronary artery disease I25.10 Atrial fibrillation, unspecified type I48.91 Atrial fibrillation type: unspecified Time Spent (min) 40
--- NOTE | 2024-08-16 07:30 | PC.NURSE ---
Pt up wandering around unit. He stated he is waiting on his brother to bring him money so he can drive to [place] and his son. Requested pt not to wander into the other rooms, empty or not, pt cooperative.
--- NOTE | 2024-08-16 07:44 | PC.NURSE ---
Guy Conway, son, called for update on hid dad. Explained to him pt refusing care and wandering around unit. Continued that pt thinks his brother and you are coming to get him and he is leaving.
--- NOTE | 2024-08-16 09:01 | PC.NURSE ---
0805 : Pt passing around unit, asking if we are holding him agiant his will. Reminded pt he stated he was waiting for his brother or son. 0807: NOtified Dr Cleveland of pt's desire to leave, does not want care and is getting agitated. 0816: Pt signs AMA form 0817: Dr Cleveland, on unit, spoke with pt. PEr pt he undertsantds the risks and he is leaving. 0819: Pt sescorted to front door, This nurse offered to Call his son Guy to let him know. Pt refused
--- NOTE | 2024-08-16 14:21 | P.DS_ITS ---
Discharge Providers Date of Admission: 08/14/24 16:39 Date of Discharge: August 16, 2024 Attending Provider at Admission: Jesse Thomas MD Attending Provider at Discharge: Love Cleveland MD Consults: Cardiology Diagnoses at Discharge Discharge Diagnosis (1) Noncompliance: Status: Acute (2) Aspiration pneumonia: Status: Acute (3) Sleep apnea: Status: Acute (4) Congestive heart failure: Status: Acute Qualifiers: Heart failure type: unspecified Heart failure chronicity: acute Qualified Code(s): I50.9 - Heart failure, unspecified (5) Coronary artery disease: Status: Acute (6) Atrial fibrillation: Status: Acute Qualifiers: Atrial fibrillation type: unspecified Qualified Code(s): I48.91 - Unspecified atrial fibrillation Reason for Visit Reason for Visit: chest pain, sob Hospital Course Hospital Course Ghanshyam Conway is a 74 year old male with past medical history of COPD on home BiPAP, not using BiPAP since he traveled from [place] to [place], CAD/non- ST elevation [place] within last 1 week post PCI to [facility] and OM1, A-fib with RVR, recently started on Eliquis for anticoagulation who was discharged on diuretic therapy, Eliquis and Augmentin for lower lobe pneumonia presents to the ER today because of chest discomfort and difficulty in breathing. As per the ER physician patient was found to be hypoxic down to mid 80s on room air improving with nebulization treatment on 2 L of oxygen and desaturating on room air again hence hospitalist service was consulted for further evaluation and management. hospital course: (1) Hypoxic respiratory failure: --A combination of COPD exacerbation, congestive heart failure getting complicated by aspiration pneumonia. --monitor blood abg, labs Chest x-ray showing right lower lobe consolidation. CTA done on previous admission negative for PE. continue abx tation keeping saturation over 90%. Patient will most likely need home O2 evaluation on discharge. (2) COPD (chronic obstructive pulmonary disease): Pulmicort twice daily, ipratropium, Xopenex every 6 hours. Solu-Medrol 40 mg every 8 hourly. (3) Aspiration pneumonia: Concern for aspiration on recent admission. Was recommended for aspiration precautions. Speech therapy. Dysphagia level 5 diet with moderately thickened fluids for now. Check sputum culture, MRSA swab. For now start on treatment for hospital-acquired pneumonia with IV vancomycin and Zosyn. (4) Congestive heart failure: proBNP elevated. Recent echocardiogram showed an EF of 65%, LVH without regional wall motion abnormality, mild pulmonary hypertension with RVSP of 40 to 45 mmHg, dilated LA, mild MR. IV Lasix 40 mg twice daily. Fluid restriction to less than 1500 cc. Strict input charting, daily weights. (5) Uses bilevel positive airway pressure (BPAP) ventilation at home: (6) NSTEMI (non-ST elevated myocardial infarction): On recent admission. Post PCI to OM1 and LCx. Less likely the culprit for now. Follow-up troponin level. Continue with Plavix, statin, metoprolol. will consult Cardiology (7) Atrial fibrillation: Telemetry. Continue with metoprolol at home dose. Continue Eliquis 5 mg twice daily. (8) Sleep apnea: BiPAP nightly and as needed. On August 16, 2024 patient left AMA. Despite discussing risks including . He needed cardiology follow-up. He reports that he needed to leave and that his family would be very upset if he was not discharged hide discussed the risk including worsening medical condition and . He said he understood and left. Physical Exam Narrative: General: No acute distress, AO x3 HEENT: PERRLA, pupils bilaterally equal and reactive Chest: Bilateral bronchial breath sounds all over lung mendes, coarse are present bilaterally right more than left CVS: S1-S2 irregularly irregular,, no murmurs, no tachycardia, no gallops, no rubs Abdomen: Soft, nontender, no organomegaly, bowel sounds present Neuro: No focal deficits, no facial deformity, AO x3, power 5/5 in all limbs Discharge Data Studies Completed and Pending Completed Studies During Hospitalization Category Date Time Status CT chest con [id number] Urgent Cat Scan 08/14/24 17:13 Completed XR chest 1V portable [id number] Stat Exams 08/14/24 14:37 Completed Radiology Impressions Chest X-Ray 08/14/24 14:37 IMPRESSION: 1. Persistent opacity in the right lung base corresponding to atelectasis and volume loss on CT 08/10/2024. Infection is not excluded. 2. Cardiac enlargement. Chest CT 08/14/24 17:13 IMPRESSION: 1. Slightly worsened right lower lobe consolidation and ground-glass opacities, concerning for infection. 2. Remainder stable. COMMENTS: The presence of pulmonary emphysema on CT is an independent risk factor for lung cancer. In the absence of a history or active diagnosis of lung cancer, it is recommended that this patient with emphysema be evaluated for enrollment in a low dose CT lung cancer screening program. Laboratory Results WBC 7.95 10^3/uL (3.29-11.43) 08/15/24 05:15 RBC 4.94 10^6/uL (3.85-5.65) 08/15/24 05:15 Hgb 13.00 g/dL (11.27-16.99) 08/15/24 05:15 Hct 43.5 % (37-53) 08/15/24 05:15 MCV 88.1 fl (82-101) 08/15/24 05:15 MCH 26.3 pg (27-33) L 08/15/24 05:15 MCHC 29.9 g/dL (30-55) L 08/15/24 05:15 RDW 16.6 % (12.1-15.1) H 08/15/24 05:15 Plt Count 199 10^3/cmm (157-399) 08/15/24 05:15 MPV 10.2 fL (7.4-10.4) 08/15/24 05:15 Neut % (Auto) 87.1 % 08/15/24 05:15 Lymph % (Auto) 10.6 % 08/15/24 05:15 M[place]racken % (Auto) 1.6 % 08/15/24 05:15 Eos % (Auto) 0.0 % 08/15/24 05:15 Baso % (Auto) 0.1 % 08/15/24 05:15 Neut # (Auto) 6.92 10^3/uL (1.8-7.7) 08/15/24 05:15 Lymph # (Auto) 0.8 10^3/uL (0.8-4.8) 08/15/24 05:15 [place] # (Auto) 0.1 10^3/uL (0.2-0.9) L 08/15/24 05:15 Eos # (Auto) 0.0 10^3/uL (0.0-0.8) 08/15/24 05:15 Baso # (Auto) 0.0 10^3/uL (0.0-0.1) 08/15/24 05:15 Nucleated RBC % (auto) 0 % 08/15/24 05:15 Nucleated RBCs # 0.0 /100WBC 08/15/24 05:15 Specimen Type Arterial 08/14/24 16:51 Sample Site Radial, left 08/14/24 16:51 ABG pH 7.40 (7.35-7.45) 08/14/24 16:51 ABG pCO2 54.3 mmHg (35-45) H 08/14/24 16:51 ABG pO2 72.7 mmHg (80.0-100.0) L 08/14/24 16:51 ABG PO2/FiO2 Ratio 259 08/14/24 16:51 ABG HCO3 33.7 mmol/L (22-26) H 08/14/24 16:51 ABG Base Excess 7.2 mmol/L (-2.0-2.0) H 08/14/24 16:51 Rogers Test Pos 08/14/24 16:51 Hematocrit 43.8 % (42-52) 08/14/24 16:51 O2 Delivery Device Nc 08/14/24 16:51 O2 Liters/Min 2.0 % 08/14/24 16:51 FiO2 28.0 % 08/14/24 16:51 Corporate Auditor ID [email or web address] 08/14/24 16:51 Sodium 142 mmol/L (136-145) 08/15/24 05:15 Potassium 3.7 mmol/L (3.5-5.1) 08/15/24 05:15 Chloride 102 mmol/L (98-107) 08/15/24 05:15 Carbon Dioxide 27 mmol/L (22-29) 08/15/24 05:15 Anion Gap 16.7 (5-19) 08/15/24 05:15 BUN 22 mg/dL (8-23) 08/15/24 05:15 Creatinine 0.7 mg/dL (0.7-1.2) 08/15/24 05:15 GFR Calculation Not Reportable 08/15/24 05:15 Glucose 149 mg/dL (65-115) H 08/15/24 05:15 Estimat Average Glucose 126 08/14/24 14:43 Hemoglobin A1c 6.0 % (4.0-6.0) 08/14/24 14:43 Calculated Osmolality 300 mOsm/kg (285-295) H 08/15/24 05:15 Lactic Acid 0.9 mmol/L (0.5-2.2) 08/14/24 15:27 Calcium 8.7 mg/dL (8.5-10.5) 08/15/24 05:15 Phosphorus 3.7 mg/dL (2.5-4.5) 08/15/24 05:15 Magnesium 1.8 mg/dL (1.7-2.3) 08/15/24 05:15 Iron 55 ug/dL (59-158) L 08/14/24 17:39 TIBC 281 mcg/dl 08/14/24 17:39 % Saturation 19.5 % (20-50) L 08/14/24 17:39 Unsat Iron Binding 226 ug/dL (112-347) 08/14/24 17:39 Total Bilirubin 0.4 mg/dL (0.15-1.2) 08/15/24 05:15 AST 15 U/L (0-40) 08/15/24 05:15 ALT 21 U/L (0-41) 08/15/24 05:15 Alkaline Phosphatase 56 U/L (40-130) 08/15/24 05:15 Troponin T Baseline 51 ng/L (0-15) H 08/14/24 15:27 Troponin T 120 Minute 56.73 ng/L (0-15) H 08/14/24 17:39 Delta Troponin T 5.73 ABS# (0-10) 08/14/24 17:39 Troponin T Hi Sens 6Hr 51.41 ng/L (0-15) H 08/14/24 21:06 Troponin T Hi Sens 6Hr Delta 0.41 ng/L (0-12) 08/14/24 21:06 NT-Pro-B Natriuret Pep 7067 pg/mL (0-125) H 08/14/24 15:27 Total Protein 6.6 g/dL (6.6-8.7) 08/15/24 05:15 Albumin 3.6 g/dL (3.5-5.2) 08/15/24 05:15 Globulin 3.0 g/dL (1.3-4.6) 08/15/24 05:15 Triglycerides 60 mg/dL (0-150) 08/15/24 05:15 Cholesterol 122 mg/dL (0-200) 08/15/24 05:15 LDL Cholesterol, Calc 71 mg/dL (50-129) 08/15/24 05:15 HDL Cholesterol 39 mg/dL (60-100) L 08/15/24 05:15 LDL/HDL Ratio 1.82 RATIO (0.00-3.22) 08/15/24 05:15 Cholesterol/HDL Ratio 3.13 mg/dL (1.0-5.00) 08/15/24 05:15 Vitamin B12 542 pg/mL (232-1245) 08/14/24 17:27 Folate 15.1 ng/mL (4.5-32.2) 08/15/24 05:15 Procalcitonin 0.03 ng/mL (0-0.5) 08/15/24 05:15 TSH 3.71 uIU/mL (0.27-4.20) 08/14/24 15:27 Urine Color Yellow (Yellow) 08/14/24 17:41 Urine Appearance Clear (CLEAR) 08/14/24 17:41 Urine pH 6.0 (5-7) 08/14/24 17:41 Ur Specific [place] 1.023 (1.005-1.030) 08/14/24 17:41 Urine Protein 2+ (Negative) A 08/14/24 17:41 Urine Glucose (UA) Negative (Normal) 08/14/24 17:41 Urine Ketones Negative (Negative) 08/14/24 17:41 Urine Blood 1+ (Negative) A 08/14/24 17:41 Urine Nitrate Negative (Negative) 08/14/24 17:41 Urine Bilirubin Negative (Negative) 08/14/24 17:41 Urine Urobilinogen 1.0 mg/dL (Negative) 08/14/24 17:41 Ur Leukocyte Esterase Negative (Negative) 08/14/24 17:41 Urine RBC 6-10 /hpf (0-2) 08/14/24 17:41 Urine WBC 0-5 /hpf (0-5) 08/14/24 17:41 Ur Squamous Epith Cells 0-5 /hpf (0-5) 08/14/24 17:41 Amorphous Sediment Not Reportable 08/14/24 17:41 Urine Bacteria None seen /hpf (NONE) 08/14/24 17:41 Hyaline Casts 0.40 /lpf 08/14/24 17:41 Vancomycin Trough 26.3 ug/mL (10-15) H* 08/15/24 16:36 Vitals Last Vital Signs Temp 98.2 F 08/16/24 00:00 Pulse 122 H 08/16/24 04:30 Resp 17 08/16/24 04:30 BP 187/130 08/16/24 04:00 Pulse Ox 92 08/16/24 04:15 O2 Del Method Nasal Cannula 08/16/24 02:00 O2 Flow Rate 2 08/16/24 02:00 Discharge Plan Discharge Patient Disposition: Left Against Medical Advice Condition: Stable Prescriptions: No Action cyclobenzaprine 10 mg tablet 10 mg PO TID PRN (Reason: muscle spasms) citalopram 20 mg tablet 20 mg PO DAILY tamsulosin 0.4 mg capsule 0.4 mg PO BEDTIME Trelegy Ellipta 100-62.5-25 mcg Blister With Device 1 inh INHALATION DAILY Eliquis 5 mg Tablet 5 mg PO BID 30 Days Qty: 60 0RF losartan 50 mg Tablet 25 mg PO DAILY 30 Days Qty: 15 0RF metoprolol succinate 50 mg Tablet Extended Release 24 Hr 75 mg PO BID 30 Days Qty: 90 0RF clopidogrel 75 mg Tablet 75 mg PO DAILY 30 Days Qty: 30 0RF potassium chloride [Klor-Con M20] 20 mEq Tablet,Er Particles/Crystals 20 meq PO DAILY 30 Days Qty: 60 0RF nitroglycerin 0.4 mg Tablet, Sublingual 0.4 mg sublingual Q5M PRN (Reason: Chest Pain) 30 Days Qty: 30 0RF amoxicillin-pot clavulanate 875-125 mg tablet 1 tab PO BID 5 Days Qty: 10 0RF albuterol sulfate 90 mcg/actuation aero powdr breath act w/sensor 1 inh inhalation Q6H PRN (Reason: shortness of breath) Qty: 1 0RF bumetanide 1 mg Tablet 1 mg PO DAILY 30 Days Qty: 30 0RF rosuvastatin 40 mg tablet 40 mg PO BEDTIME 30 Days Qty: 30 0RF Discharge Diet: Cardiac Patient Instructions: Opioid Safety Discharge Attestations Time Spent in Discharge Care*: greater than 30 min Quality Metrics Clinical Quality Measures [ No reported AMI, CVA or VTE this stay] Coding Level of Care Code 60973 Diagnoses Noncompliance Z91.199 Aspiration pneumonia J69.0 Sleep apnea G47.30 Acute congestive heart failure, unspecified heart failure type I50.9 Heart failure type: unspecified Heart failure chronicity: acute Coronary artery disease I25.10 Atrial fibrillation, unspecified type I48.91 Atrial fibrillation type: unspecified Time Spent (min) 45
== END 2024-08-16 08:16 | disposition left against medical advice (07) | DRG 280 ==
LOC: ER 17:02 → ICU 17:15
PROVIDERS: Admitting Provider Student in an Organized Health Care Education/Training Program; Emergency Provider Student in an Organized Health Care Education/Training Program; Visit Provider Internal Medicine
DX: I50.31 Acute diastolic (congestive) heart failure (principal); J69.0 Pneumonitis due to inhalation of food and vomit; I21.4 Non-ST elevation (NSTEMI) myocardial infarction; J96.91 Respiratory failure, unspecified with hypoxia; J44.1 Chronic obstructive pulmonary disease with (acute) exacerbation; T50.916A Underdosing of multiple unspecified drugs, medicaments and biological substances, initial encounter; Z91.128 Patient's intentional underdosing of medication regimen for other reason; Z53.29 Procedure and treatment not carried out because of patient's decision for other reasons; G47.33 Obstructive sleep apnea (adult) (pediatric); I25.10 Atherosclerotic heart disease of native coronary artery without angina pectoris; Z95.5 Presence of coronary angioplasty implant and graft; I48.91 Unspecified atrial fibrillation; Z99.89 Dependence on other enabling machines and devices; Z79.01 Long term (current) use of anticoagulants; Z87.01 Personal history of pneumonia (recurrent); Z79.51 Long term (current) use of inhaled steroids; E66.9 Obesity, unspecified; Z68.38 Body mass index [BMI] 38.0-38.9, adult; I16.0 Hypertensive urgency; F17.210 Nicotine dependence, cigarettes, uncomplicated; Z79.02 Long term (current) use of antithrombotics/antiplatelets; I27.20 Pulmonary hypertension, unspecified
CPT/HCPCS: 36415; 36600; 71045; 71250; 80053; 80061; 80202; 81001; 82607; 82746; 82803; 83036; 83540; 83550; 83605; 83735; 83880; 84100; 84145; 84443; 84484; 85025; 87070; 87205; 92523; 92610; 93005; 94640; 96374; 96376; J0360; J1940; J2470; J2543; J2919; J3370; J3475; J3490; J7614; J7626; J7644; J9999